=== PATIENT | male | born 1935 | race Caucasian/White ===

== ENCOUNTER 2016-08-06 10:10 | Inpatient (IN) ==
--- NOTE | 2016-08-06 11:01 | Diag Imaging Result Document ---
PROCEDURE NAME: HEAD W/O CONTRAST - 08/06/[address], 08/06/2016: A CT dose reduction protocol was used. COMPARISON: 08/05/2016. FINDINGS: Stable patchy periventricular white matter hypodensities most compatible with chronic microvascular disease. There is no acute disease or change from prior. IMPRESSION: No acute disease or change from prior. Consider a brain MRI. [facility]
--- NOTE | 2016-08-06 11:29 | Diag Imaging Result Document ---
PROCEDURE NAME: CHEST-1 VIEW - 08/06/2016 AP CHEST: FINDINGS: There is reticular nodular opacity throughout both lungs which was also the case of 07/31/2016. The lung opacities are slightly coarser than they were on 04/30/2015. IMPRESSION: Pulmonary fibrosis which may be slightly worse than on 04/30/2015 and 07/23/2015.
[2016-08-06 12:00] LABS: MANUAL DIFF NEEDED? NO
[2016-08-06 12:06] LABS: BASO% 0.3 % (0.0-0.8); EOS% 1.6 % (0.0-10.0); HEMOGLOBIN 11.5 g/dL (14.0-18.0); LYMPH# 0.73 X1000 (1.2-3.4); LYMPH% 11.4 % (20.5-51.1); MCH 28.9 PG (27-31); MCHC 32.9 g/dL (33-37); MCV 87.9 FL (81-99); MONO# 0.68 X1000 (0.11-0.59); MONO% 10.6 % (1.7-9.3); MPV 8.8 FL (7.4-10.4); NEUT% 76.1 % (42.2-75.2); PLT 221 X1000 (130-400); RBC 3.98 XMIL (4.7-6.1)
[2016-08-06 12:25] LABS: ALBUMIN 3.5 g/dL (3.5-5.0); CALCIUM 8.6 mg/dL (8.8-10.2); POTASSIUM 3.6 mmol/L (3.5-5.1); TOTAL BILIRUBIN 0.68 mg/dL (0.20-1.00); TOTAL PROTEIN 7.3 g/dL (6.3-8.3)
[2016-08-06 12:45] LABS: FREE T4 1.28 ng/dL (0.93-1.70)
[2016-08-06 12:53] LABS: URINE CULTURE NEEDED? NO; URINE MICRO REVIEW NEEDED? NO; URINE SOURCE CLEAN CATCH
[2016-08-06 12:56] LABS: BILIRUBIN URINE NEGATIVE (NEGATIVE); BLOOD URINE NEGATIVE (NEGATIVE); COLOR YELLOW; GLUCOSE URINE NEGATIVE (NEGATIVE); LEUKOCYTES URINE NEGATIVE (NEGATIVE); NITRITE URINE NEGATIVE (NEGATIVE); PH URINE 6.5; PROTEIN URINE NEGATIVE (NEGATIVE); SP GRAVITY URINE 1.007; TURBIDITY URINE CLEAR (CLEAR); UROBILINOGEN URINE NORMAL (NORMAL)
[2016-08-06 12:57] LABS: UR EPITHELIAL CELLS <10 /HPF (<10); URINE BACTERIA NEGATIVE /HPF; URINE RBC <10 /HPF (<10); URINE WBC <10 /HPF (<10)
--- NOTE | 2016-08-06 13:16 | EKG Report ---
Test Performed on : 08/06/2016 10:53:40 AM Test Reason : stroke Blood Pressure : / mmHG Vent. Rate : 088 BPM Atrial Rate : 100 BPM P-R Int : 000 ms QRS Dur : 158 ms QT Int : 454 ms P-R-T Axes : 000 117 -38 degrees QTc Int : 549 ms Atrial fibrillation. with premature ventricular or aberrantly conducted complexes. Right bundle branch block T wave abnormality, consider inferior ischemia Abnormal ECG When compared with ECG of 05-AUG-2016 07:42, (Unconfirmed) T wave inversion more evident in Anterior leads Unconfirmed Result
[2016-08-06] MEDS ORDERED: ZOFRAN IV PRN (14:46)
[2016-08-06] MEDS ORDERED: LASIX PO SCH (14:46)
[2016-08-06] MEDS ORDERED: CARDIZEM PO SCH (14:46)
[2016-08-06] MEDS ORDERED: DUONEB (A & A) INH PRN (14:46)
--- NOTE | 2016-08-06 17:57 | HISTORY AND PHYSICAL ---
Mr. Brown presented to the emergency room earlier today for 3 days now in a row. Two weeks ago they stopped his Klonopin because he seemed to be weak and puny and he has had episodes of the main thing has been confusion and delirium and agitation at times with some paranoid delusions. At present he is alert and oriented. But this morning she said it was difficult for him to sit up. It seemed like he was weaker, difficult for him to stand up. They have not noticed any slurred speech. She denies any change in vision. Denies any chest pain or palpitations. Denies any fever or chills. PAST MEDICAL HISTORY: 1. Congestive heart failure. Echocardiogram done on 10/19/2014 revealed ejection fraction of 40- 50%, moderately enlarged bilateral aorta, right ventricular depression. There was 1+ mitral regurgitation. Probably severe tricuspid regurgitation. Pulmonary artery hypertension with pulmonary artery pressures 70-80 mmHg. 2. Ischemic cardiomyopathy. 3. Coronary artery disease. 4. Hypertension. 5. Bipolar disease. 6. Chronic kidney disease with baseline creatinine 1.8. 7. Hyperlipidemia. 8. Chronic atrial fib status post MAZE procedure in 2008. 9. Status post pacemaker ICD placement. PAST SURGICAL HISTORY: 1. Pacemaker placement. 2. MAZE procedure. 3. Coronary artery disease. MEDICATIONS: At home: 1. Lipitor 5 mg a day. 2. Amiodarone 200 mg a day. 3. Cardizem 30 mg q.6 hours. 4. Furosemide 60 mg q.12 hours. 5. Isosorbide dinitrate 20 mg t.i.d. 6. Lamictal 10 mg b.i.d. 7. Zyprexa 10 mg at bedtime. 8. Oxycodone 20 mg Q.6 hours. I think they are changing to OxyContin. 9. Protonix 40 mg a day. 10. MiraLAX 17 g daily. 11. Spironolactone 25 mg a day. FAMILY HISTORY: Noncontributory. SOCIAL HISTORY: Patient quit smoking a long time ago. No alcohol or tobacco. REVIEW OF SYSTEMS: Unable to elicit from the patient. The reports no weight gain or change. No fever or chills. HEENT system: Confusion and delirium. Respiratory: No increased work of breathing or dyspnea. Cardiovascular: No chest pain or tachy palpitation. GI: Unremarkable. : Unremarkable. Musculoskeletal/Neurologic: No significant complaints. Endocrinologic/Hematologic: No significant history. PHYSICAL EXAMINATION: VITAL SIGNS: Temperature 98.4 degrees, pulse 88, respirations 15, blood pressure 120/68. HEENT: Pupils were equal, round. CVP less than 6 cm. LUNGS: Clear in all lung pham. CARDIOVASCULAR: Regular rhythm and rate without murmur or S3. ABDOMEN: Soft. SKIN: Warm and dry. Weight 154 pounds. White blood cell count 6400, hematocrit 35, platelet count 221,000. Sodium 134, potassium 3.6, chloride 92, BUN 33, creatinine 1.7. Blood sugar 91. Calcium 8.6. Liver functions unremarkable. Alkaline phos 159. Albumin 3.5. B12 613. TSH is 18.6. T4 1.28. Recently had gone up on his Synthroid. Urinalysis unremarkable. Chest x-ray, pulmonary fibrosis. CT of his head without contrast, no acute disease. May end up doing a brain MRI. Current list of medications. He is on Lipitor 5 mg a day. Amiodarone 200 mg a day. We will put him back on his Klonopin 0.5 mg b.i.d. Cardizem 30 mg p.o. q.6 hours. Docusate sodium is 100 mg at bedtime. Proscar 5 mg a day. Furosemide 80 mg daily. Ipratropium albuterol 0.5-32.5 treatments as needed. Iron carbonyl 1 a day. Isosorbide dinitrate 20 mg t.i.d. Lamictal 100 mg b.i.d. Synthroid recently increased to 75 mcg a day. Lopressor 25 mg a day. Zyprexa 10 mg at bedtime. Oxycodone 15 mg b.i.d. Protonix 40 mg daily. MiraLAX 17 g daily. Spironolactone 25 mg daily. Flomax 0.4 mg daily. EXAM: Temp 98.4 degrees, pulse 88, respirations 15, blood pressure 120/68.HEENT: Pupils are equal, round. Lungs: Are clear in all lung pham. Cardiovascular: Regular rhythm and rate without murmur or S3. Abdomen: Soft. Skin: Is warm and dry. Weight 154 pounds, height 5 feet 7 inches. CVP less than 6 cm. White blood cell count 6400, hematocrit 35, platelet count 221,000. Sodium 134, potassium 3.6, chloride 92, bicarb 26, BUN 33, creatinine 1.7. Liver functions: AST was 20, ALT was 13, alkaline phos 159. TSH 18.06. T4 1.28. ASSESSMENT AND PLAN: 1. Altered mental status, metabolic encephalopathy. This may be due to medication changes including possibility of withdrawal. I am going to put him back on his Klonopin. I am going to continue his other medications. He will take Zyprexa 10 mg a day, Lamictal 100 mg b.i.d., clonazepam backed down to 0.5 mg b.i.d. 2. Some underlying dementia. Aware. 3. History of congestive heart failure, pulmonary hypertension. Appears to be well compensated at present time. 4. Ischemic cardiomyopathy. 5. Coronary artery disease. 6. Hypertension. 7. Bipolar disease. 8. Chronic kidney disease probably stage 3. His creatinine is stable at 1.8. 9. Hyperlipidemia. 10. Chronic atrial fib, status post MAZE procedure. He is status post pacemaker, ICD placement. Rate appears well controlled. He is on amiodarone. His EKG today actually shows paced rhythm with a right bundle-branch pattern. Rate is 88. cc: Walter Contreras MD
[2016-08-06] MEDS ORDERED: NS 1,000 ML IV SCH (19:00)
[2016-08-06] MEDS: ISORDIL PO SCH (20:11)
[2016-08-06] MEDS: OXY IR PO SCH (20:13)
[2016-08-06] MEDS: ZYPREXA PO SCH (20:14)
[2016-08-06] MEDS: COLACE PO SCH (20:14)
[2016-08-06] MEDS: FLOMAX PO SCH (20:14)
[2016-08-06] MEDS: LAMICTAL PO SCH (20:14)
[2016-08-06] MEDS: KLONOPIN PO PRN (20:25)
[2016-08-07] MEDS: NS 1,000 ML IV SCH ×2 (04:19→09:21)
[2016-08-07 06:33] LABS: MANUAL DIFF NEEDED? NO
[2016-08-07 06:40] LABS: BASO% 0.2 % (0.0-0.8); EOS# 0.14 X1000 (0.0-0.7); EOS% 2.3 % (0.0-10.0); HEMATOCRIT 36.1 % (42.0-52.0); HEMOGLOBIN 11.3 g/dL (14.0-18.0); LYMPH# 0.53 X1000 (1.2-3.4); LYMPH% 8.7 % (20.5-51.1); MCH 28.3 PG (27-31); MCHC 31.3 g/dL (33-37); MCV 90.5 FL (81-99); MONO# 0.61 X1000 (0.11-0.59); MPV 8.2 FL (7.4-10.4); NEUT% 78.8 % (42.2-75.2); PLT 185 X1000 (130-400); RBC 3.99 XMIL (4.7-6.1)
[2016-08-07 06:53] LABS: CALCIUM 8.2 mg/dL (8.8-10.2); POTASSIUM 3.8 mmol/L (3.5-5.1); TOTAL BILIRUBIN 0.59 mg/dL (0.20-1.00); TOTAL PROTEIN 6.7 g/dL (6.3-8.3)
--- NOTE | 2016-08-07 07:14 | EKG Report ---
Test Performed on : 08/07/2016 06:37:50 AM Test Reason : chest pain Blood Pressure : / mmHG Vent. Rate : 087 BPM Atrial Rate : 096 BPM P-R Int : 000 ms QRS Dur : 176 ms QT Int : 434 ms P-R-T Axes : 000 112 -53 degrees QTc Int : 522 ms Atrial fibrillation. Right bundle branch block T wave abnormality, consider inferior ischemia Abnormal ECG When compared with ECG of 06-AUG-2016 10:53, No significant change was found Confirmed by Ulises ROB, Triston Chaudhry ([id number]) on 08/08/2016 10:00:24 AM
[2016-08-07] MEDS ORDERED: ALDACTONE PO SCH (09:00)
[2016-08-07] MEDS: LAMICTAL PO SCH ×2 (09:20→21:58)
[2016-08-07] MEDS: OXY IR PO SCH ×3 (09:21→22:06)
[2016-08-07] MEDS: FLOMAX PO SCH ×2 (09:21→21:58)
[2016-08-07] MEDS: ISORDIL PO SCH ×4 (09:21→22:01)
[2016-08-07] MEDS: SYNTHROID PO SCH (09:21)
[2016-08-07] MEDS: PROTONIX PO SCH (09:21)
[2016-08-07] MEDS ORDERED: LOPRESSOR PO SCH (15:00)
[2016-08-07] MEDS: ICAR-C PLUS PO SCH (15:23)
[2016-08-07] MEDS: CORDARONE PO SCH (15:23)
[2016-08-07] MEDS: MIRALAX PO SCH (15:24)
[2016-08-07] MEDS: LIPITOR PO SCH (15:24)
[2016-08-07] MEDS: PROSCAR PO SCH (15:24)
--- NOTE | 2016-08-07 16:17 | PROGRESS NOTE ---
DATE: 08/07/2016 SUBJECTIVE: Mr. Brown has been pretty sleepy but he is less confused. His was there. He has not slept very well for the last 3-4 days. He is back on his Klonopin. Discussed with his daughter, Dr. Garcia, who is a psychiatrist, and she feels as well that he is probably just having withdrawal from his Klonopin. In the long half life of the Klonopin, usually it is 72 hours or so before you start to see that, so that would fit. OBJECTIVE: Temp is 97.7. Pulse 70. Respirations 20. Blood pressure 114/59. Pupils are equal and round. CVP less than 6 cm. Lungs are clear in all lung pham. Cardiovascular exam is regular rhythm and rate without murmur or S3. Abdomen is soft. Skin is warm and dry. Urine output good. LABORATORY: White count 6112, hematocrit 36, platelet count 185,000. Chemistry: Sodium 138, potassium 3.8, chloride 99, bicarb 29, BUN 36, creatinine 1.6, blood sugar 106, 91, and 84. EKG from this morning: Atrial fibrillation, right bundle branch block, appears to be underlying atrial fibrillation, he does have a pacemaker, this appears to be unpaced rhythm. ASSESSMENT AND PLAN: 1. Confusion, delirium, worse than usual. We had recently stopped his Klonopin and they had also decreased some of his pain medicines. He seems to be better, although there is still some confusion. He has been very lethargic and sleepy but appears comfortable. He is requesting food, so we will see how his p.o. intake does. We have him back on his Klonopin 0.5 mg b.i.d. 2. Underlying dementia. 3. Congestive heart failure, pulmonary hypertension, probably severe tricuspid regurgitation, ischemic cardiomyopathy, appears well compensated. 4. Coronary artery disease. 5. Hypertension. 6. Bipolar illness. 7. Chronic kidney disease stage III. 8. Chronic atrial fibrillation. Review of his orders, I do not see any change. Lasix 80 mg p.o. Wednesday and , Flomax 0.4 mg b.i.d., Aldactone 25 mg Wednesday, Wednesday, Wednesday, MiraLAX 17 grams q. day, Protonix 40 mg a day, OxyIR 15 mg b.i.d., Zyprexa 10 mg q.h.s., he is receiving normal saline right now at 42 mL an hour, Lopressor 25 mg q. day, Synthroid 75 mg a day, Lamictal 100 mg b.i.d., isosorbide dinitrate 20 mg p.o. t.i.d., iron carbonyl 1 a day, fluticasone 1 puff inhaler q.day, Proscar 5 mg a day, docusate 100 mg q.h.s., Klonopin 0.5 mg b.i.d., Lipitor 5 mg a day, amiodarone 200 mg a day. cc: Walter Contreras MD
[2016-08-07] MEDS: ZYPREXA PO SCH (21:58)
[2016-08-07] MEDS: COLACE PO SCH (21:58)
[2016-08-08] MEDS: NS 1,000 ML IV SCH ×2 (03:59→09:15)
[2016-08-08] MEDS: KLONOPIN PO PRN ×2 (05:19→21:30)
[2016-08-08] MEDS: TYLENOL PO PRN ×2 (05:19→16:14)
[2016-08-08] MEDS: BREO ELLIPTA 100/25 MCG INH INH SCH (08:15)
[2016-08-08] MEDS: OXY IR PO SCH ×2 (09:12→21:30)
[2016-08-08] MEDS: LAMICTAL PO SCH ×2 (09:13→21:29)
[2016-08-08] MEDS: SYNTHROID PO SCH (09:13)
[2016-08-08] MEDS: ICAR-C PLUS PO SCH (09:13)
[2016-08-08] MEDS: FLOMAX PO SCH ×2 (09:13→21:29)
[2016-08-08] MEDS: PROSCAR PO SCH (09:13)
[2016-08-08] MEDS: ISORDIL PO SCH ×3 (09:13→21:33)
[2016-08-08] MEDS: LOPRESSOR PO SCH ×2 (09:13→09:17)
[2016-08-08] MEDS: MIRALAX PO SCH (09:14)
[2016-08-08] MEDS: CORDARONE PO SCH (09:14)
[2016-08-08] MEDS: PROTONIX PO SCH (09:14)
[2016-08-08] MEDS: LIPITOR PO SCH (09:14)
--- NOTE | 2016-08-08 14:36 | PROGRESS NOTE ---
DATE: 08/08/2016 SUBJECTIVE: He feels better, was awake. He said he wants to go home. He is oriented to person, place, breathing comfortably. OBJECTIVE: Vital signs: Temperature 98.1 degrees, pulse 69, respirations 18, blood pressure 99/52. HEENT: Pupils are equal. CVP less than 6 cm. Lungs: Clear in all lung pham. Cardiovascular: Regular rhythm and rate without murmur or S3. Abdomen: Soft. Skin: Warm and dry. Good urine output. LAB: White count 6120, hematocrit 36, platelet count 187,000. Sodium 138, potassium 3.8, chloride 99, BUN 36, creatinine 1.6, blood sugar 106, 91, 84, 137, 107, albumin 3.0. ASSESSMENT AND PLAN: 1. Confusion and delirium, underlying dementia. We suspected it is multifactorial but I suspect the main component was withdrawal from Klonopin doing better back on the Klonopin. 2. Congestive heart failure. Appears to be well compensated, breathing comfortably. 3. History of ischemic cardiomyopathy, severe tricuspid regurgitation and pulmonary hypertension but does have systolic dysfunction as well. 4. Coronary artery disease. 5. Hypertension. 6. Bipolar illness. 7. History of chronic kidney disease stage 3. Will recheck some more labs in the morning. Make sure we check thyroid as well. We actually did check T4, TSH and they are normal. August 06 his TSH was 18 in the emergency room so I had gone up on the Synthroid so review his orders, I do not see any change at this point. cc: Walter Contreras MD
[2016-08-08] MEDS: COLACE PO SCH (21:29)
[2016-08-08] MEDS: ZYPREXA PO SCH (21:29)
[2016-08-09] MEDS: NS 1,000 ML IV SCH (04:08)
[2016-08-09 06:43] LABS: CALCIUM 7.8 mg/dL (8.8-10.2); POTASSIUM 4.2 mmol/L (3.5-5.1)
[2016-08-09 07:36] VITALS: BP 129/67
[2016-08-09] MEDS: BREO ELLIPTA 100/25 MCG INH INH SCH (08:04)
[2016-08-09] MEDS: FLOMAX PO SCH (11:31)
[2016-08-09] MEDS: MIRALAX PO SCH (11:31)
[2016-08-09] MEDS: ICAR-C PLUS PO SCH (11:31)
[2016-08-09] MEDS: LIPITOR PO SCH (11:31)
[2016-08-09] MEDS: PROTONIX PO SCH (11:32)
[2016-08-09] MEDS: PROSCAR PO SCH (11:32)
[2016-08-09] MEDS: CORDARONE PO SCH (11:32)
[2016-08-09] MEDS: ISORDIL PO SCH (11:32)
[2016-08-09] MEDS: OXY IR PO SCH (11:32)
[2016-08-09] MEDS: SYNTHROID PO SCH (11:32)
[2016-08-09] MEDS: LAMICTAL PO SCH (11:33)
[2016-08-09] MEDS: LOPRESSOR PO SCH (11:33)
--- NOTE | 2016-08-09 13:42 | DISCHARGE SUMMARY ---
ADMISSION DATE: 08/06/2016 DISCHARGE DATE: 08/09/2016 HOSPITAL COURSE: He had really week's worth of confusion. We had recently decreased his Klonopin but his delusions and confusions were really more prominent and had brought him to the emergency room 3 days in a row. His labs and CT scans were unremarkable so felt like he had metabolic encephalopathy and adjusted his medications. He had no further trouble confusion, felt good, put him back on his Klonopin. We have been adjusting his pain medicine down. We did hold his Lopressor little bit because of his blood pressure and in fact I will reduce his Lopressor a little bit. DISCHARGE MEDICATIONS: His list of medications when he goes home he can take his DuoNeb, he is on Cordarone 200 mg a day, Lipitor 5 mg a day, Klonopin 0.5 mg b.i.d., Colace 100 mg at bedtime, Proscar 5 mg a day, Breo Ellipta 100/25 one puff daily, Lasix 80 mg takes by mouth Wednesday, , iron, B12, vitamin C, folic acid or Icar Plus 1 a day, Isordil 20 mg t.i.d., Lamictal 100 mg b.i.d., Synthroid mg daily, Lopressor we are down to 12.5 p.o. daily so will continue that, Zyprexa 10 mg at bedtime, he has OxyIR 15 mg p.o. b.i.d., Protonix 40 mg a day, MiraLAX 17 g daily, Aldactone 25 mg a day, Flomax 0.4 mg b.i.d. DISPOSITION: See him back in my office in a couple weeks. PAST MEDICAL HISTORY: To review other medical problems for him he has. 1. History of congestive heart failure. Echocardiogram done on 10/19/2014 revealed ejection fraction of 40-50%, moderately large bilateral atrium, right ventricular depression which is mild, there was 1+ mitral regurgitation, probably severe tricuspid regurgitation, pulmonary arterial hypertension appreciated. 2. Ischemic cardiomyopathy. 3. Coronary artery disease. 4. Hypertension. 5. Bipolar disease. 6. Chronic kidney disease with baseline creatinine 1.8. 7. Hyperlipidemia. 8. Chronic atrial fibrillation status post Maze procedure in 2008. 9. Status post pacemaker implantable cardioverter defibrillator placement. PAST SURGICAL HISTORY: 1. Pacemaker placement. 2. Maze procedure. 3. Coronary artery disease. cc: Walter Contreras MD
== END 2016-08-09 14:51 | disposition home or self-care (01) ==
LOC: SUPCPDRO → ED 10:10 → EDIPHOLD 14:41 → 3N 15:41
PROVIDERS: ADMIT Emergency Medicine; ATTEND Emergency Medicine

== ENCOUNTER 2016-08-19 23:49 | Inpatient (IN) ==
[2016-08-20] MEDS ORDERED: LASIX IV ONE (00:29)
[2016-08-20] MEDS ORDERED: DUONEB (A & A) INH ONE ×2 (00:29→01:44)
--- NOTE | 2016-08-20 00:40 | PROVIDER DOCUMENTATION ---
This chart was entered by Bere Dong Scribe, acting as scribe for Osiris Moise PA. HPI-General Adult - General Chief Complaint: Headache Stated Complaint: SOB/HEADACHE Time Seen by Provider: 08/20/16 00:06 Source: patient, family Allergies/Adverse Reactions: Patient Allergies Allergy/AdvReac Type Severity Reaction Status Date / Time divalproex sodium AdvReac Severe Renal Verified 08/20/16 00:45 [From [facility]] failure Home Medications: Home Medication List Medication Instructions Recorded Confirmed Last Taken Type ATORVAstatin [Lipitor] 5 mg PO DAILY 03/20/12 08/20/16 08/19/16 History Lamotrigine [Lamictal Odt] 100 mg PO BID 03/20/12 08/20/16 08/19/16 History Olanzapine [Zyprexa] 10 mg PO QHS 03/20/12 08/20/16 08/19/16 History Polyethylene Glycol 3350 [Miralax] 17 gm PO DAILY 03/20/12 08/20/16 08/19/16 History Amiodarone HCl 200 mg PO DAILY 05/28/14 08/20/16 08/19/16 History Pantoprazole [Protonix] 40 mg PO DAILY 05/28/14 08/20/16 08/19/16 History Spironolactone 25 mg PO DIRECTED 01/15/15 08/20/16 08/19/16 History Isosorbide Dinitrate [Isordil] 20 mg PO TID #90 tablet 02/02/15 08/20/16 Rx Finasteride [Proscar] 5 mg PO DAILY #30 tablet 03/18/15 08/20/16 08/19/16 Rx Tamsulosin [Flomax] 0.4 mg PO BID #30 capsule 03/18/15 08/20/16 08/19/16 Rx Docusate Sodium [Colace] 100 mg PO QHS 07/31/16 08/20/16 08/19/16 History Fluticasone/Vilanterol [Breo 1 each IH DAILY 07/31/16 08/20/16 08/19/16 History Ellipta 100-25 Mcg INH] Furosemide [Lasix] 80 mg PO DIRECTED 07/31/16 08/20/16 08/19/16 History Ipratropium/Albuterol Sulfate 3 ml IH Q4H PRN 07/31/16 08/20/16 08/19/16 History [Iprat-Albut 0.5-3(2.5) mg/3 ml] Iron,Carbonyl/Vit C/Vit B12/FA 1 each PO DAILY 07/31/16 08/20/16 08/19/16 History [Iron 100 Plus Tablet] Metoprolol [Lopressor] 12.5 mg PO DAILY 07/31/16 08/20/16 08/19/16 History Levothyroxine [Synthroid] 75 microgm PO DAILY #30 tablet 08/05/16 08/20/1608/19 Rx Oxycodone HCl [Dazidox] 10 mg PO TID 08/20/16 08/20/16 Unknown History - History of Present Illness -Gen Adult Nature of Presenting Problems: 81 year old M with a history of CHF (Last EF of 40-50% 09/2014), CAD, pulmonary fibrosis, COPD and hx of CVA with right sided residual weakness. He presents to the ED with his as majority historian a cc of a headache and back pain. states that pt has been falling more often even when walking with a walker. She also states that pt has been short of breath. PT was recently discharged 2 weeks ago from the hospital with AMS secondary to Klonipin withdrawal. Location of Pain/Injury: reports: head Quality of Pain: reports: aching Severity: reports: mild Timing: reports: still present Context/Activities at Onset: reports: none Associated Symptoms: reports: headaches, shortness of breath Similar Symptoms Previously?: Yes Recently seen or treated by another doctor?: No Review of Systems - Adult - REVIEW OF SYSTEMS - ADULT Constitutional: denies: chills, fever Eyes: reports: no symptoms reported Ears, Nose, Mouth & Throat: reports: no symptoms reported Cardiovascular: reports: no symptoms reported Respiratory: reports: shortness of breath. denies: cough Gastrointestinal: denies: abdominal pain, nausea, vomiting Genitourinary: reports: no symptoms reported Musculoskeletal: reports: no symptoms reported Integumentary: reports: no symptoms reported Neurological: reports: headache/migraines. denies: dizziness/vertigo Psychiatric: reports: no symptoms reported Endocrine: reports: no symptoms reported Hematologic/Lymphatic: reports: no symptoms reported Allergic/Immunologic: reports: no symptoms reported All Other Systems: Reviewed and Negative Past History - Adult - PAST MEDICAL HISTORY-ADULT Review of Records: reports: Nursing Assessment Review, Medications Reviewed Major Childhood Illnesses: reports: denies history Cardiovascular: reports: CAD, CHF, HTN Respiratory: reports: COPD Genitourinary: reports: kidney disease Neurological: reports: CVA, TIA Psychiatric: reports: bipolar - PRIOR SURGERIES/PROCEDURES Surgical/Procedure History: reports: CABG, other (ICD, hemorrhoid) - PRIOR HOSPITALIZATIONS Prior Hospitalizations: reports: for similar symptoms - IMMUNIZATION STATUS Childhood Immunizations: See Nurse Assessment Flu Vaccine: See Nurse Assessment - FAMILY HISTORY Family History: reviewed, not pertinent Physical Exam-General - PHYSICAL EXAM-ADULT Initial Vital Signs Reviewed: Yes - CONSTITUTIONAL General Appearance: alert - EYES Eyes: PERRL/EOMI, pink conjunctivae, other (extropion on the right with some discharge around the margins.) - HEAD, EARS, NOSE, MOUTH & THROAT HENMT: normocephalic/atraumatic, moist mucous membranes, normal ENT inspection - RESPIRATORY Respiratory: crackles, wheezing (diffuse), other (tachypnea) - CARDIOVASCULAR Cardiovascular: regular rate, rhythm, other (ICD in the left anterior chest) - GASTROINTESTINAL (ABDOMEN) Abdominal Exam: soft - MUSCULOSKELETAL Extremity: pedal edema (3+ bilateral), other (weakness of the right side generalized) Peripheral Pulses: radial (R): 2+, radial (L): 2+, dorsalis-pedis (R): 2+, dorsalis-pedis (L): 2+ - SKIN Integumentary: abrasion(s) (throasic spin x3), other (fragile skin) - NEUROLOGIC Neurologic: facial droop (right lip with drool and right eye), motor weakness ( right arm) - PSYCHIATRIC Psych/Mental Status: oriented x 3 Progress - PLAN OF CARE/RESULTS Progress/Plan/Lab Results: Vital Signs - 8 hr 08/19/16 23:51 Temperature 97.1 F L Pulse Rate 88 Respiratory Rate 28 H Blood Pressure 159/77 O2 Sat by Pulse Oximetry 95 Orders Category Date Time Status EKG [EKG] Stat Ther 08/19/16 23:54 Ordered Result Diagrams: 08/20/16 00:15 08/20/16 00:15 - EKG 1 Time of EKG reading by physician:: 23:55 EKG Read and Signed by:: Edd Correa EKG Interpretation (*Must complete 3 of following elements*): Abnormal Rate: 97 Rhythm: atrial fibrillation QRS: RBB ST Wave: non-specific ST changes (T-wave abnormality) - XRAY 1 XRAY: Bilateral XRAY Study: Chest Impression: Abnormal (increased pulmonary vasculature congestion compared to 03/28. No obvious effusions or pneumonia, reviewed by Dr. Correa) - CONSULTS/PCP/HOSPITALIST Notification #1 *Consult/PCP/Hospitalist*: Dr. Bird, hospitalist Time Discussed: 02:14 (on behalf of Dr. Contreras) Reason/Comments: CHF exacerbation Consult Disposition: Admit Departure - Departure Time of Disposition Decision: 02:05 DIAGNOSIS: Weakness, Elevated TSH CHF (congestive heart failure) Qualifiers: Congestive heart failure type: systolic Congestive heart failure chronicity: acute Qualified Code(s): I50.21 - Acute systolic (congestive) heart failure Disposition: ADMITTED INPATIENT 09 Certified Medical Emergency: Emergent Condition: Stable - Critical Care Note This patient required my direct & personal management of CC.: No Attestation - Physician/ TEJAL Attestation Patient care was provided by Advanced Practice Provider:: Yes Advanced Practice Provider:: Osiris Moise Advanced Practice Provider documentation review:: The Mid-level provider documentation, treatment plan and medical decision making was reviewed by the physician who agrees with all treatment and medical decision making by the MLP. This chart was documented by the indicated scribe, (Bere Dong Scribe) and accurately reflects the services I performed and decisions made by Jose Maria hernandez Kayla C., PA, as attested by the provider's signature.
[2016-08-20 00:44] LABS: ALLEN TEST YES; BE 2.3 mmoll (-3.0-3.0); BLOOD TYPE ARTERIAL; DRAW SITE L RADIAL; METHB 1.7 % (0.0-1.5); MODALITY ROOM AIR; O2(CT) 14.5 mL/dL (15.0-23.0); PCO2(98.6) 43 mmHg (35-45); PO2(98.6) 101 mmHg (60-100); SAMPLE BLOOD; SAO2 98.3 % (95.0-100.0); THB 10.7 g/dL (11.5-17.4); pH(98.6) 7.41 (7.35-7.45)
[2016-08-20 00:58] LABS: MANUAL DIFF NEEDED? NO
[2016-08-20 01:01] LABS: BASO% 0.2 % (0.0-0.8); EOS# 0.12 X1000 (0.0-0.7); EOS% 1.9 % (0.0-10.0); HEMATOCRIT 34.2 % (42.0-52.0); LYMPH% 8.1 % (20.5-51.1); MCH 28.4 PG (27-31); MCHC 32.2 g/dL (33-37); MCV 88.4 FL (81-99); MONO# 0.47 X1000 (0.11-0.59); MONO% 7.6 % (1.7-9.3); MPV 9.4 FL (7.4-10.4); NEUT% 82.2 % (42.2-75.2); PLT 168 X1000 (130-400); RBC 3.87 XMIL (4.7-6.1)
[2016-08-20 01:36] LABS: URINE CULTURE NEEDED? NO; URINE MICRO REVIEW NEEDED? NO; URINE SOURCE CLEAN CATCH
[2016-08-20 01:39] LABS: ALBUMIN 3.5 g/dL (3.5-5.0); CALCIUM 8.8 mg/dL (8.8-10.2); MAGNESIUM 1.9 mg/dL (1.5-2.7); POTASSIUM 4.3 mmol/L (3.5-5.1); TOTAL BILIRUBIN 0.57 mg/dL (0.20-1.00); TOTAL PROTEIN 7.1 g/dL (6.3-8.3)
[2016-08-20 01:39] LABS: BILIRUBIN URINE NEGATIVE (NEGATIVE); BLOOD URINE NEGATIVE (NEGATIVE); COLOR YELLOW; GLUCOSE URINE NEGATIVE (NEGATIVE); LEUKOCYTES URINE NEGATIVE (NEGATIVE); NITRITE URINE NEGATIVE (NEGATIVE); PROTEIN URINE TRACE mg/dL (NEGATIVE); TURBIDITY URINE CLEAR (CLEAR); UR EPITHELIAL CELLS <10 /HPF (<10); URINE BACTERIA NEGATIVE /HPF; URINE RBC <10 /HPF (<10); URINE WBC <10 /HPF (<10); UROBILINOGEN URINE NORMAL (NORMAL)
[2016-08-20] MEDS ORDERED: PHENERGAN IV ONE (01:42)
[2016-08-20] MEDS ORDERED: COMPAZINE IV ONE (01:42)
[2016-08-20] MEDS ORDERED: SODIUM CHLORIDE 0.9% INJ ONE (01:42)
[2016-08-20 01:57] LABS: FREE T4 1.05 ng/dL (0.93-1.70)
[2016-08-20 04:55] LABS: INR 1.1; PROTIME 11.6 Seconds (9.2-11.7); PTT 27.5 Seconds (22.0-36.0)
[2016-08-20] MEDS ORDERED: ZOFRAN IV PRN (05:04)
[2016-08-20] MEDS ORDERED: MIRALAX PO PRN (05:04)
[2016-08-20] MEDS: OXY IR PO PRN ×2 (06:24→13:26)
[2016-08-20] MEDS: SYNTHROID PO SCH (06:27)
--- NOTE | 2016-08-20 06:28 | EKG Report ---
Test Performed on : 08/19/2016 11:55:47 PM Test Reason : sob/back pain Blood Pressure : / mmHG Vent. Rate : 097 BPM Atrial Rate : 107 BPM P-R Int : 000 ms QRS Dur : 176 ms QT Int : 424 ms P-R-T Axes : 000 121 -56 degrees QTc Int : 538 ms Undetermined rhythm Right bundle branch block T wave abnormality, consider inferior ischemia Abnormal ECG When compared with ECG of 07-AUG-2016 06:37, Current undetermined rhythm precludes rhythm comparison, needs review Unconfirmed Result
[2016-08-20] MEDS: LOVENOX SUBQ SCH (06:48)
--- NOTE | 2016-08-20 07:28 | HISTORY AND PHYSICAL ---
PRIMARY CARE PROVIDER: Walter Contreras MD MILITARY PAY CLERK: Camilo Cabral MD DATE AND TIME OF HISTORY AND PHYSICAL: On 08/20/2016 at 0300 hours. CHIEF COMPLAINT: Headache and shortness of breath. HISTORY OF PRESENT ILLNESS: Mr. Brown is an 81-year-old male who presented to the ER tonight, accompanied by his , complaining of worsening shortness of breath, as well as headache and back pain. The patient's reports that he has been falling more often when walking with his walker. He has also been complaining of shortness of breath and has some increased swelling in his lower extremities. The patient was recently discharged from the hospital approximately 2 weeks ago after being admitted with some altered mental status, possibly secondary to medication and Klonopin withdrawal. Upon arrival to the ER, the patient was noted to be short of breath with audible wheezing. His reports that over the past 1-1/2 weeks, he has become increasingly more short of breath. He has also had some increasing weakness and multiple falls. He has not been sleeping well. The patient does have a history of chronic headaches and does present to the ER with a headache that has been becoming worse over the past day or so. He has had increased use of his home nebulizer treatments and weight gain of 7 pounds in the last few days. ER staff reports upon arrival patient was alert and oriented x3 and was able answer questions appropriately. He was given 12.5 of Phenergan IV and 10 mg of Compazine IV for treatment of his headache. Unfortunately, this has caused the patient to be quite drowsy, confused and restlessness. The patient's confirms that he was alert and oriented and able to answer questions appropriately prior to administration of this medication. At this time we will admit the patient for further treatment of his congestive heart failure exacerbation. REVIEW OF SYSTEMS: A 12-point review of systems was conducted with the patient , and all were negative except for pertinent positives mentioned above in the HPI. PAST MEDICAL HISTORY: 1. Congestive heart failure with last echocardiogram performed in January 2015, which shows a normal left ventricular systolic function with an estimated EF of 60% to 65% . There was a moderately enlarged right ventricle with right global hypokinesis. Moderate pulmonary hypertension with moderate tricuspid regurgitation. Mild mitral regurgitation, and there is a mild degree of aortic regurgitation with a calcification of the aortic valve and trivial aortic stenosis. 2. Ischemic cardiomyopathy. 3. Coronary artery disease, status post CABG. 4. Hypertension. 5. Hyperlipidemia. 6. Chronic atrial fibrillation, status post maze procedure. 7. Status post AICD pacemaker placement. 8. Chronic kidney disease. 9. Bipolar disease. 10. Hypothyroidism. 11. 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 12. COPD, currently on home oxygen with nasal cannula at 3 liters. 13. History of skin cancer. PAST SURGICAL HISTORY: 1. Previous coronary bypass procedure x2, along with maze procedure. The patient has had implantation of an AICD pacemaker. 2. Eight skin cancer removal. 3. Hemorrhoid surgery. 4. Cataract surgery. SOCIAL HISTORY: The patient currently lives at home with his , who was present at bedside at the time of examination. He is a former smoker, though he quit smoking many years ago. He has no known history of alcohol or illicit drug use. FAMILY HISTORY: The patient's mother and father both had a history of lung cancer. His mother also had a history of heart disease. ALLERGIES: The patient reports allergies to Depakote. HOME MEDICATIONS: 1. Amiodarone 200 mg p.o. daily. 2. Atorvastatin 5 mg p.o. daily. 3. Colace 100 mg p.o. every night at bedtime. 4. Proscar 5 mg p.o. daily. 5. Breo Ellipta 100/25 mcg inhaler 1 each inhaled daily. 6. Lasix 80 mg as directed 2 tablets p.o. every a.m. on Mondays and . 7. DuoNeb nebulizer treatments 3 mL inhaled every 4 hours p.r.n. for shortness of breath. 8. Iron 100+ tablet 1 p.o. daily. 9. Isordil 20 mg p.o. t.i.d. 10. Lamictal ODT 100 mg p.o. b.i.d. 11. Synthroid 75 mcg p.o. daily. 12. Metoprolol 12.5 mg p.o. daily. 13. Olanzapine 10 mg p.o. every night at bedtime. 14. Oxycodone 10 mg p.o. t.i.d. 15. Protonix 40 mg p.o. daily. 16. MiraLAX 17 grams p.o. daily. 17. Spironolactone 25 mg p.o. as directed on Wednesday, Wednesday, and Wednesday. 18. Flomax 0.4 mg p.o. b.i.d. DIAGNOSTIC DATA AND LABORATORY RESULTS: White blood cell count 6.19, hemoglobin 11, hematocrit 34.2, platelet count is 168,000. PT 11.6, INR 1.1, PTT 27.5. Sodium 134, potassium 4.3, chloride 97, bicarbonate 26, BUN 24, creatinine 1.4 with an estimated GFR of 49, glucose 98, calcium 8.8, magnesium 1.9. Total bilirubin is 0.57, AST 21, ALT 17, alkaline phosphatase is 191. His proBNP is 15,982. TSH 23.99, free T4 is 1.05. Arterial blood gases were obtained on room air, and pH was 7.41, pCO2 of 43, PO2 of 101, HCO3 was 26.6 with a base excess of 2.3 and O2 saturation of 98.3. Urinalysis was obtained via clean catch and was positive for protein, though was negative for glucose, ketones, blood, nitrites, leukocytes, or bacteria. EKG showed atrial fibrillation with a right bundle-branch block, as well as a right axis deviation, at a rate of 97. The QTc was 538. Chest x-ray showed findings of increased pulmonary vascular congestion compared to previous in July 2016. No obvious effusions or pneumonia is noted, though we are awaiting for a radiology over-read. PENDING DIAGNOSTIC STUDIES: The pending diagnostic studies at this time are an echocardiogram, as well as a series of CK profile as well as troponins. PHYSICAL EXAMINATION: VITAL SIGNS: Temperature 98 degrees, heart rate 87, respirations 20, blood pressure 155/92, oxygen saturation 97% on nasal cannula at 3 liters. GENERAL: Mr. Brown is an elderly 81-year-old male who was resting on the ER stretcher. Due to just being given some medications for headache of Compazine and Phenergan , the patient was slightly drowsy, as well as slightly confused upon our examination. HEENT: Head is atraumatic, normocephalic. Pupils are equal, round, reactive to light and were 3 mm bilaterally and brisk. The patient does have some deformity noted to the upper and lower lid of his right eye, through the states this is secondary to some skin cancer that he has had removed, and he is currently seeing an cash reconciliation specialist for close evaluation of this. Oral mucosa is moist. Oropharynx is clear. NECK: Supple. Trachea midline. The patient does have a slight hepatojugular reflex noted upon examination. CARDIOVASCULAR: The patient has normal S1 and S2 with no murmurs, gallops, or rubs appreciated. Heart rhythm slightly irregular with a heart rates that is controlled in the 80s and 90s. The patient does have a pacemaker defibrillator to the left chest. PULMONARY: The patient has symmetrical chest expansion bilaterally. Lung sounds in bilateral full pham were coarse with wheezing noted. ABDOMEN: Soft, nontender, nondistended. Bowel sounds were present in all 4 quadrants. EXTREMITIES: The patient has no cyanosis noted, though does have some slight swelling noted in the bilateral lower extremities from approximately the mid calf and down. He has 1+ pitting edema from ankle area down. The patient is able to move all extremities well. Pulse, motor, and sensory are intact in all extremities. Pedal pulses were 3+ bilaterally. INTEGUMENTARY: The patient's skin is pink, warm, and dry. The patient does have a skin tear noted to his elbow with some dried blood noted. NEUROLOGICAL: The patient is easily arousable to verbal stimuli with his name. He was able to state his name and where he was, though would not state the month. At this time , the patient's neurological exam is limited due to administered medications previously mentioned. The patient has some right sided facial droop noted, as well as some right-sided weakness. Patient's states this is not a new onset and it is secondary to a previous stroke. ASSESSMENT AND PLAN: 1. Congestive heart failure exacerbation. We have placed an order for an echocardiogram and a consultation with cardiology, with Dr. Cabral. We have placed the patient on Coreg 6.25 mg by mouth daily and Aldactone 12.5 mg daily. We will give Lasix 40 mg intravenously every 12 hours, daily weights, and strict input and output. We will do series of cardiac enzymes and will monitor his cardiovascular status closely and await further recommendations from cardiology. 2. Hypertension. We will continue the patient's previously prescribed blood pressure medicines. 3. Chronic atrial fibrillation, status post maze procedure. He has an automatic implantable cardioverter-defibrillator pacemaker placed. At this time, his rate is controlled. We will continue his amiodarone and place him on telemetry, and we will continue to monitor. 4. Coronary artery disease, status post coronary bypass. We have placed the patient on a aspirin 81 mg by mouth daily. 5. Hyperlipidemia. We will continue the patient's Lipitor. 6. Chronic kidney disease. This appears to be stable at this time. We will just continue to follow. 7. Chronic obstructive pulmonary disease. We will continue the patient's home oxygen at [address] DuoNeb treatments every 4 to 6 hours as needed. 8. Previous cerebrovascular accident with residual right-sided weakness and facial droop. We are aware. 9. Hypothyroidism. The patient's thyroid stimulating hormone was elevated. We have slightly adjusted his Synthroid and increased the dosage to 88 mcg, and we will continue to follow. 10. Bipolar. We will continue the patient's Zyprexa and Lamictal and monitor his neurological status closely. The patient will be placed on the medical floor with telemetry. He will have vital signs every 4 hours. He will be on a heart healthy diet. We will do deep vein thrombosis prophylaxis with Lovenox 30 mg subcutaneously daily. We have also ordered an iron level and are awaiting these results. Further orders and recommendations pending hospital course, diagnostic studies and physician evaluation. Dictated by JACOB Lanza for Jessie Bird MD I seen and examined pt with FLEXIBLE BABYSITTER; discussed plan of care with her. Seen and examined pt with FLEXIBLE BABYSITTER. Discussed plan of care with FLEXIBLE BABYSITTER cc: MD Walter Forman MD MTDD
--- NOTE | 2016-08-20 07:58 | Diag Imaging Result Document ---
PROCEDURE NAME: CHEST-PORTABLE - 08/20/2016 PORTABLE CHEST X-RAY: COMPARISON: 08/06/2016. FINDINGS: Stable pacemaker and cardiomegaly. Grossly stable diffuse bilateral coarse peripheral interstitial opacities. No pneumothorax or large effusion. No new infiltrates. IMPRESSION: No change from prior.
[2016-08-20] MEDS: DUONEB (A & A) INH PRN ×4 (08:17→19:42)
[2016-08-20] MEDS: BREO ELLIPTA 100/25 MCG INH INH SCH (08:19)
--- NOTE | 2016-08-20 08:33 | PROGRESS NOTE ---
DATE: 08/20/2016 SUBJECTIVE: This is follow up. He is admitted early this morning. states he has been having more shortness of breath. He has been having more confusion, headache and shortness of breath, and it got where he was really struggling to move air. PAST MEDICAL HISTORY: Congestive heart failure. Last known ejection fraction measured was 40% to 50% in September 2014, coronary artery disease, hypertension, COPD, history of CVA with right-sided residual weakness. The patient brought in accompanied by his complaining of worsening shortness of breath, as well as headache and back pain. Patient's reports he has been falling more often, walking with his walker and has been complaining of shortness of breath. I had him in the hospital earlier for some confusion. We thought this was related to stopping his Klonopin. In the emergency room, he was short of breath. Audible wheezing. Reported that for the last 1 to 1-1/2 weeks he has become increasingly more short of breath. He has also had increasing weakness, multiple falls. States he has been sleeping well. Patient has a history of chronic headaches. He reports he still has a headache, still complains of shortness of breath. OBJECTIVE: Vital signs: On physical exam at the present time, temperature 98.2 degrees, pulse 82, respirations 20, blood pressure 116/90. HEENT: CVP appears about 10 cm water pressure from angle of Conner. Lungs: With rales at the bases, but appears to have good airflow no prolonged expiratory phase I can appreciate. Cardiovascular exam: Regular rhythm and rate without murmur or S3. Abdomen: Soft. Skin: Warm and dry. Good urine output. LAB: White count 6190, hematocrit 34, platelet count 168,000. Sodium 134, potassium 4.3, chloride 97, BUN 24, creatinine 1.4. ProBNP was 15,982. TSH is 23, T4 is 1.03. X-RAY: Chest x-ray shows cardiomegaly and median sternotomy wires appreciated. Cephalization of the pulmonary venous vasculature consistent with pulmonary venous hypertension. I do not do not see any evidence of pleural effusions. He does have a pacemaker. REVIEW OF HIS ORDERS: He is on spironolactone 12.5 mg daily. He is on isosorbide dinitrate 20 mg t.i.d. He is taking an iron supplement for chronic anemia microcytic. He is on Proscar 5 mg a day, docusate sodium 100 mg at bedtime, Coreg 6.25 mg daily, Lipitor 5 mg a day, aspirin 81 mg a day, amiodarone 200 mg a day. He is getting albuterol breathing treatments. He got 1 dose of Lasix down in the emergency room, IV's to keep vein open. ASSESSMENT AND PLAN: 1. Congestive heart failure. Dr. Cabral consulted to see if we can tune up his medicines, diurese him a little bit, and watch his afterload and preload. 2. Dementia, increased agitation and confusion, multifactorial, but obviously pulmonary venous hypertension playing a primary role. 3. Osteoarthritis. 4. History of cerebrovascular accident in the past. 5. He has a history of benign prostatic hypertrophy as well. Continue current medications. Note primary hypothyroidism. A TSH is his elevated and I do think we need to go up on his levothyroxine. So, probably will increase that. I think I have done that fairly recently within the last 3 weeks, so may need to give it more time. We will discuss that with Dr. Cabral given his underlying congestive heart failure. cc: Walter Contreras MD
[2016-08-20] MEDS: ICAR-C PLUS PO SCH (09:49)
[2016-08-20] MEDS: PROTONIX PO SCH (09:49)
[2016-08-20] MEDS: FLOMAX PO SCH ×2 (09:49→21:36)
[2016-08-20] MEDS: LIPITOR PO SCH (09:49)
[2016-08-20] MEDS: ISORDIL PO SCH ×3 (09:49→16:53)
[2016-08-20] MEDS: ASPIRIN PO SCH (09:50)
[2016-08-20] MEDS: COREG PO SCH ×3 (09:50→10:25)
[2016-08-20] MEDS: PROSCAR PO SCH (09:50)
[2016-08-20] MEDS: LAMICTAL PO SCH ×2 (09:50→21:36)
[2016-08-20] MEDS: ALDACTONE PO SCH (09:51)
[2016-08-20] MEDS: CORDARONE PO SCH (10:21)
--- NOTE | 2016-08-20 12:13 | CONSULTATION ---
DATE OF CONSULTATION: 08/20/2016 IMPRESSIONS: 1. Acute on chronic congestive heart failure, largely right-sided, with previous echocardiography suggesting enlarged right ventricle with right ventricular hypokinesis and moderate pulmonary hypertension, and preserved left ventricular ejection fraction. 2. Severe chronic obstructive pulmonary disease, requiring chronic home oxygen. 3. Atherosclerotic coronary artery disease with history of previous coronary artery bypass grafting. Left ventricular ejection fraction normal. 4. Chronic atrial fibrillation. Patient not felt to be a candidate for anticoagulation due to history of gastrointestinal blood loss. 5. Hypertension. 6. Hyperlipidemia. 7. Bipolar disease. 8. Previous cerebrovascular accident with residual right-sided weakness and right facial droop. RECOMMENDATIONS: 1. Diuresis, as you are doing. 2. Conservative overall care in light of patient's significant comorbidities. HISTORY: This 81-year-old white male with past history of chronic congestive heart failure largely due to cor pulmonale, previous coronary bypass grafting, severe COPD requiring chronic home oxygen, chronic atrial fibrillation, hypertension, hyperlipidemia, and previous cerebrovascular accident was admitted through the emergency room last night for further management of exacerbation of congestive heart failure. He has chronic dyspnea. Over the last 2-3 weeks, he has had progressive tendency for shortness of breath. There has been no angina. He equivocates as to whether there is any orthopnea. He is somewhat groggy and confused after antiemetics. His indicates that he does not limit his fluid intake very well. He is not felt to be a candidate for anticoagulation, as he has history of peptic ulcer disease and previous GI blood loss. PAST MEDICAL HISTORY: 1. Chronic congestive heart failure, largely cor pulmonale, with echocardiography in January 2015 reporting left ventricular ejection fraction of 60% to 65% with moderately enlarged right ventricle and right ventricular hypokinesis as well as moderate pulmonary hypertension and moderate tricuspid regurgitation. 2. Atherosclerotic coronary artery disease with history of previous coronary bypass grafting coupled with maze procedure. 3. Chronic atrial fibrillation. 4. Severe COPD. 5. Hypertension. 6. Hyperlipidemia. 7. Status post implantable defibrillator. 8. Chronic kidney disease. 9. Bipolar disease. 10. Hypothyroidism. 11. Previous cerebrovascular accident with right-sided weakness and right facial droop. 12. History of skin cancer. PAST SURGICAL HISTORY: Coronary bypass grafting with maze procedure, multiple skin cancer removals, hemorrhoid surgery, cataract surgery. ALLERGIES: He is allergic or intolerant to Depakote. MEDICATIONS PRIOR TO ADMISSION: As listed. SOCIAL HISTORY: He lives at home with his . He quit smoking perhaps 10 years ago, and previously smoked 1-1/2 packs of cigarettes per day for many years. He does not use alcohol. FAMILY HISTORY: Negative for premature coronary artery disease. REVIEW OF SYSTEMS: Pulmonary: Noteworthy for dyspnea, otherwise negative. Gastrointestinal: Negative. Constitutional: Negative. The remainder of the review of systems was negative/noncontributory with 14 total systems reviewed. PHYSICAL EXAMINATION: General: This is a chronically ill-appearing, elderly male in no distress on supplemental oxygen per nasal cannula. He is somewhat groggy after recent antiemetics. Vital Signs: As recorded and are stable. HEENT: Extraocular muscles appear intact. Mucous membranes are moist. Neck: Supple. Jugular distention appears to be present. Carotid bruits cannot be appreciated. Chest: Auscultation of the chest reveals bibasilar inspiratory crackles. Cardiac: An irregular rate and rhythm, without appreciable murmur or gallop. Abdomen: Soft and nontender. Neurologic: Reveals him to be somewhat groggy, but arousable. Speech is fluent. There is some right facial droop and some right-sided weakness. DIAGNOSTIC DATA: ECG demonstrates atrial fibrillation, right bundle branch block, and right axis deviation. cc: MD Walter Velez MD
[2016-08-20] MEDS: LASIX IV SCH (12:29)
--- NOTE | 2016-08-20 14:48 | ECHO REPORT ---
ORDER DATE: 08/20/2016 INDICATIONS: 1. Congestive heart failure. 2. Hypertension. 3. ICD implantation. FINDINGS: 1. Right atrium is mildly enlarged at 4.9 cm. Linear artifact consistent with device leads. This is noted the right heart chambers. 2. Moderate tricuspid regurgitation. RV systolic pressure is markedly elevated at 71. 3. The right ventricle appears mildly enlarged with mild reduction in RV systolic function. 4. No significant pulmonic insufficiency. 5. Moderate left atrial enlargement at 5.1 cm. 6. No mitral prolapse. There is mild mitral regurgitation. 7. The left ventricle appears to be normal in size with an end-diastolic dimension of 4.9. There is mild left ventricular hypertrophy with a posterior and interventricular septal wall thickness 1.2 and 1.3 cm, respectively. Normal LV systolic function. Estimated ejection fraction of 55% with normal wall motion. 8. Aortic valve appears somewhat calcified with restriction in motion, consistent with mild aortic stenosis. Peak gradient across valve is 17 with a mean of 7. Valve area is 1.9 cm2 by continuity equation. There is mild aortic insufficiency. 9. The aortic root does appear to be somewhat enlarged at the sinuses with a dimension of 4.3 cm. 10. No pericardial effusion seen. cc: MD Walter Cannon MD MTDD
[2016-08-20] MEDS: COLACE PO SCH (21:36)
[2016-08-20] MEDS: ZYPREXA PO SCH ×2 (21:36→23:59)
[2016-08-21] MEDS: LASIX IV SCH ×2 (00:11→12:26)
[2016-08-21] MEDS: OXY IR PO PRN (02:40)
[2016-08-21 06:05] LABS: MANUAL DIFF NEEDED? NO
[2016-08-21 06:09] LABS: BASO% 0.3 % (0.0-0.8); EOS# 0.19 X1000 (0.0-0.7); EOS% 2.5 % (0.0-10.0); HEMATOCRIT 35.8 % (42.0-52.0); HEMOGLOBIN 11.3 g/dL (14.0-18.0); LYMPH# 0.77 X1000 (1.2-3.4); MCH 28.6 PG (27-31); MCHC 31.6 g/dL (33-37); MCV 90.6 FL (81-99); MONO# 0.76 X1000 (0.11-0.59); MONO% 9.9 % (1.7-9.3); NEUT% 77.3 % (42.2-75.2); PLT 188 X1000 (130-400); RBC 3.95 XMIL (4.7-6.1)
[2016-08-21] MEDS: LOVENOX SUBQ SCH (06:14)
[2016-08-21] MEDS: SYNTHROID PO SCH (06:15)
[2016-08-21 06:44] LABS: CALCIUM 8.4 mg/dL (8.8-10.2); MAGNESIUM 1.8 mg/dL (1.5-2.7); POTASSIUM 4.2 mmol/L (3.5-5.1)
[2016-08-21] MEDS: ALDACTONE PO SCH (09:10)
[2016-08-21] MEDS: ASPIRIN PO SCH (09:26)
[2016-08-21] MEDS: LIPITOR PO SCH (09:26)
[2016-08-21] MEDS: CORDARONE PO SCH (09:30)
[2016-08-21] MEDS: LAMICTAL PO SCH ×2 (09:30→21:57)
[2016-08-21] MEDS: ICAR-C PLUS PO SCH (09:30)
[2016-08-21] MEDS: FLOMAX PO SCH ×2 (09:30→21:57)
[2016-08-21] MEDS: COREG PO SCH (09:31)
[2016-08-21] MEDS: ISORDIL PO SCH ×3 (09:31→16:27)
[2016-08-21] MEDS: PROTONIX PO SCH (09:31)
[2016-08-21] MEDS: PROSCAR PO SCH (09:32)
[2016-08-21] MEDS: KLONOPIN PO SCH ×2 (10:32→22:00)
--- NOTE | 2016-08-21 12:03 | PROGRESS NOTE ---
DATE: 08/21/2016 He had quite a bit of delirium last night. He pulled out his IV, confused. states he is talking about things that do not make any sense. We are going to get his Sandoval catheter out, get physical therapy to start walking him and make sure he is on is a Klonopin twice a day. He did get some Phenergan down in the emergency room and I will try and avoid any medications that might tip him over. He presented with shortness of breath related to his congestive heart failure, pulmonary venous hypertension. Breathing seems to be doing a little better.Vital signs: Temperature 97.7 degrees, pulse 79, respirations 22, blood pressure 118/70. CVP less than 6 cm. Respiratory: Lungs are clear. Decreased breath sounds both bases. Cardiovascular: Regular rhythm and rate without murmurs, S3. Urine output is close to 4 L so good urine output. White count 7710, hematocrit 35, platelet count 188,000. Sodium 138, potassium 4.2, chloride 96, bicarb 29, BUN 20, creatinine 1.6. CPK unremarkable. Troponin unremarkable. No sign of cardiac ischemia. Echocardiogram done read by Dr. Olivares yesterday, right atrium mildly enlarged. Moderate tricuspid regurgitation. Right systolic pressures around 71 mmHg. Right ventricle appears enlarged with mild reduction in right systolic function. Left ventricle appears to be normal size. There is mild left ventricular hypertrophy. Posterior and intraventricular septal wall thickness is 1.2-1.3 cm. LV systolic function looked good. Ejection fraction 55%. Normal wall motion. Aortic valve is somewhat calcified. There is mild aortic insufficiency. Mild aortic stenosis. Aortic root seems a little enlarged, dimension 4.3 cm. EXAM: Today sitting up in a chair.Vital signs: Temperature 97.7 degrees, pulse 79, respirations 22, blood pressure 118/70. HEENT: Pupils are equal, round. Lungs: Clear. As stated decreased breath sounds both bases. Cardiovascular: Regular rate without murmur or S3. The x-ray from yesterday no change, stable pacemaker, cardiomegaly, grossly stable diffuse bilateral peripheral interstitial opacities. ASSESSMENT AND PLAN: 1. Pulmonary venous hypertension, underlying COPD. He did no sign of active ischemia. Appears to be more diastolic dysfunction with a pulmonary hypertension. 2. History of coronary artery disease status post CABG. 3. Hypertension. 4. Chronic atrial fib. Rate appears controlled. He is status post Maze procedure. 5. AICD pacemaker placement. 6. Chronic kidney disease. 7. History of bipolar. 8. History of dementia. 9. Hypothyroidism. Recently have gone up on his Synthroid. Probably make another adjustment. 10. Take out his Sandoval catheter. Get physical therapy involved. Ask social service to help. cc: Walter Contreras MD
--- NOTE | 2016-08-21 12:34 | PROGRESS NOTE ---
DATE: 08/21/2016 SUBJECTIVE: Patient reports feeling improved and denies dyspnea on supplemental oxygen per nasal cannula. There has been no chest pain. OBJECTIVE: Blood pressure 118/70, heart rate 79 and regular, oxygen saturation 98% on 2 L per nasal cannula. There is no significant jugular venous distention.Chest: Clear to auscultation. Cardiac Exam: Reveals a regular rate and rhythm without appreciable murmur or gallop. Extremities: Demonstrate trace edema. IMPRESSION: 1. Acute on chronic congestive heart failure largely right-sided. This appears to have improved significantly with diuresis thus far. 2. Severe COPD requiring chronic home oxygen. 3. Atherosclerotic coronary disease, history of previous coronary bypass grafting. Left ventricle ejection fraction normal. 4. Chronic atrial fibrillation. Patient not felt to be a candidate for anticoagulation in the past due to history of GI blood loss. 5. Hypertension. 6. Hyperlipidemia. RECOMMENDATIONS: 1. Reasonable to transition back to oral diuretic therapy soon. 2. Conservative management overall in light of patient's comorbidities. cc: MD Walter Velez MD
[2016-08-21] MEDS: DUONEB (A & A) INH PRN ×2 (16:11→21:15)
[2016-08-21] MEDS: COLACE PO SCH (21:57)
[2016-08-21] MEDS: ZYPREXA PO SCH (21:58)
[2016-08-22] MEDS: TYLENOL PO PRN ×2 (01:55→17:35)
[2016-08-22] MEDS: LASIX IV SCH (01:55)
[2016-08-22 08:48] LABS: ALBUMIN 2.9 g/dL (3.5-5.0); MAGNESIUM 1.9 mg/dL (1.5-2.7); POTASSIUM 3.9 mmol/L (3.5-5.1); TOTAL BILIRUBIN 0.5 mg/dL (0.20-1.00); TOTAL PROTEIN 6.1 g/dL (6.3-8.3)
[2016-08-22] MEDS: LIPITOR PO SCH (08:57)
[2016-08-22] MEDS: ASPIRIN PO SCH (08:58)
[2016-08-22] MEDS: FLOMAX PO SCH ×2 (08:58→21:52)
[2016-08-22] MEDS: PROSCAR PO SCH (08:58)
[2016-08-22] MEDS: PROTONIX PO SCH (08:58)
[2016-08-22] MEDS: ISORDIL PO SCH ×3 (08:58→21:52)
[2016-08-22] MEDS: ALDACTONE PO SCH (08:58)
[2016-08-22] MEDS: ICAR-C PLUS PO SCH (08:58)
[2016-08-22] MEDS: CORDARONE PO SCH (08:58)
[2016-08-22] MEDS: LAMICTAL PO SCH ×2 (08:58→21:51)
[2016-08-22] MEDS: COREG PO SCH (08:58)
--- NOTE | 2016-08-22 11:07 | PROGRESS NOTE ---
DATE: 08/22/2016 CHIEF COMPLAINT: Shortness of breath, lethargy, cough. SUBJECTIVE: Mr. Brown is resting, sitting up in a chair. He is very sleepy; however, he wakes up to commands. He denies having any pain at this time. His breathing is more comfortable. He is more alert and oriented. OBJECTIVE: Blood pressure is 120/63, pulse 54, temperature 98.3, respirations 16. He is awake, follows commands. HEENT: Unremarkable. Chest: Diminished breath sounds diffusely. Occasional crepitus. Heart sounds are irregularly irregular. No gallop is noted. No definite murmur. Abdomen: Nontender. Extremities: No obvious edema. Neurologic: He follows commands. He has some stiffness in the neck and arms. DIAGNOSTIC DATA: Laboratory work today showed his sodium was 138, potassium 3.9, BUN is 35, creatinine 1.7. Albumin is low at 2.9. IMPRESSION: 1. Chronic systolic and diastolic heart failure with acute exacerbation. 2. Diffuse pulmonary infiltrates, questionable interstitial lung disease, questionable amiodarone toxicity. 3. Coronary artery disease with previous bypass surgery. 4. History of recurrent ventricular tachycardia for which he has been given ICD and also amiodarone. 5. History of chronic hyponatremia, presently well controlled. 6. Mental status changes, metabolic encephalopathy. 7. History of bipolar disease. 8. History of previous stroke. RECOMMENDATIONS: At this point in time, we will continue present management of his heart failure with loop diuretics and continue all of the other medications that he is normally on. I will check a C-reactive protein and a sedimentation rate. If they are elevated, I may want to do a CT of the chest without contrast looking for interstitial lung disease, possible amiodarone toxicity. Further advice will be forthcoming. cc: MD Walter Stephenson MD
[2016-08-22] MEDS ORDERED: SODIUM CHLORIDE 0.9% INJ ONE (11:19)
[2016-08-22] MEDS ORDERED: SYNTHROID IV ONE (11:19)
[2016-08-22] MEDS: DUONEB (A & A) INH PRN ×2 (16:16→21:15)
[2016-08-22] MEDS: NEOSPORIN OINTMENT TUBE TOP SCH (17:33)
[2016-08-22] MEDS: SYNTHROID PO SCH (18:04)
[2016-08-22] MEDS: KLONOPIN PO SCH ×2 (18:04→21:52)
[2016-08-22] MEDS: LOVENOX SUBQ SCH (18:04)
[2016-08-22] MEDS: COLACE PO SCH (21:51)
[2016-08-22] MEDS: ZYPREXA PO SCH (21:51)
[2016-08-23] MEDS: LOVENOX SUBQ SCH (06:00)
[2016-08-23] MEDS: SYNTHROID PO SCH (06:00)
[2016-08-23] MEDS: FLOMAX PO SCH ×2 (08:13→23:08)
[2016-08-23] MEDS: NEOSPORIN OINTMENT TUBE TOP SCH (08:13)
[2016-08-23] MEDS: ALDACTONE PO SCH (08:13)
[2016-08-23] MEDS: LAMICTAL PO SCH ×2 (08:14→23:09)
[2016-08-23] MEDS: ICAR-C PLUS PO SCH (08:14)
[2016-08-23] MEDS: LIPITOR PO SCH (08:16)
[2016-08-23] MEDS: PROSCAR PO SCH (08:16)
[2016-08-23] MEDS: LASIX PO SCH (08:16)
[2016-08-23] MEDS: CORDARONE PO SCH (08:16)
[2016-08-23] MEDS: PROTONIX PO SCH (08:16)
[2016-08-23] MEDS: KLONOPIN PO SCH ×2 (08:16→23:09)
[2016-08-23] MEDS: COREG PO SCH (08:17)
[2016-08-23] MEDS: ISORDIL PO SCH ×3 (08:17→17:09)
[2016-08-23] MEDS: ASPIRIN PO SCH (08:17)
--- NOTE | 2016-08-23 09:50 | Diag Imaging Result Document ---
PROCEDURE NAME: CT THORAX W/O CONTRAST - 08/23/2016 CT THORAX WITHOUT CONTRAST: TECHNIQUE: No contrast administered per request of the referring provider. A dose reduction protocol was used. Compared with 01/28/2015. FINDINGS: There are bilateral interstitial opacities which are mildly increased compared to previous exam. There is associated honeycombing which is most conspicuous at the lung periphery in some areas. The findings are suggestive of bilateral interstitial fibrosis. There is mild pleural thickening bilaterally. There is no focal dense consolidation, substantial pleural effusion, or pneumothorax identified. There is cardiomegaly similar to the previous exam. There is mild mediastinal adenopathy which appears grossly stable. Included sections of upper abdomen show small low-density and hyperdense lesions at the visualized bilateral mid and upper kidneys. These are grossly similar to the previous exam and may represent a combination of simple and complicated cysts. There are atherosclerotic calcifications noted, including prominent calcifications at the proximal superior mesenteric artery. IMPRESSION: 1. Evidence of bilateral pulmonary fibrosis. 2. Mild mediastinal adenopathy which appears grossly stable. 3. Stable cardiomegaly.
[2016-08-23] MEDS: BREO ELLIPTA 100/25 MCG INH INH SCH (10:35)
--- NOTE | 2016-08-23 14:40 | PROGRESS NOTE ---
DATE: 08/23/2016 CHIEF COMPLAINT: Shortness of breath, weakness. SUBJECTIVE: Mr. Brown is still sleepy; however, he does wake up more readily to commands. is at the bedside. He denies having any chest pain. OBJECTIVE: Blood pressure is 116/62, temperature 98.6, pulse 71, respirations 16. He is arousable, sits up in the bed. Neck veins are not distended. Chest: Symmetrical breath sounds with bilateral velcro-like crackles. Heart sounds are irregularly irregular, systolic murmur is noted 1 to 2/6. No gallop. Abdomen is nontender. Extremities showed no edema. Neurologic: He follows commands and moves all 4 extremities. DIAGNOSTIC DATA: Sedimentation rate was done yesterday and was 17 mm per hour. C-reactive protein was 13.2 mg/L, normal is less than 5. His sodium is 138, potassium 3.9, BUN is 35, creatinine 1.7. Albumin is 2.9. His telemetry shows atrial fibrillation with controlled response. CT scan of the chest was done today, and that shows bilateral infiltrates, pulmonary fibrosis with mild mediastinal adenopathy and stable cardiomegaly. IMPRESSION: 1. The patient presented with lethargy and some mental status changes, like metabolic encephalopathy that appeared to be clearing up. 2. Chronic systolic and diastolic heart failure with acute exacerbation which is improving. 3. Diffuse pulmonary infiltrates with CT evidence of pulmonary fibrosis. 4. Coronary artery disease, previous bypass surgery. 5. History of recurrent ventricular tachycardia. 6. Status post AICD implantation. 7. History of bipolar disease. 8. History of previous stroke. RECOMMENDATIONS: At this point in time, Mr. Brown appears to be improving gradually. I believe that he would be a very good candidate for placement at rehab for 3 weeks to do some strengthening exercises. As far as medications, I would not make any changes yet. We will follow him along. cc: MD Walter Stephenson MD
[2016-08-23] MEDS: TYLENOL PO PRN (15:13)
[2016-08-23] MEDS: DUONEB (A & A) INH PRN (16:00)
[2016-08-23] MEDS: COLACE PO SCH (23:08)
[2016-08-23] MEDS: ZYPREXA PO SCH (23:10)
[2016-08-24] MEDS: LOVENOX SUBQ SCH (06:13)
[2016-08-24] MEDS: SYNTHROID PO SCH (06:13)
[2016-08-24] MEDS: DUONEB (A & A) INH PRN ×2 (09:41→15:58)
[2016-08-24] MEDS: BREO ELLIPTA 100/25 MCG INH INH SCH (09:41)
[2016-08-24] MEDS: ALDACTONE PO SCH (10:12)
[2016-08-24] MEDS: ISORDIL PO SCH ×3 (10:12→20:34)
[2016-08-24] MEDS: PROSCAR PO SCH (10:12)
[2016-08-24] MEDS: ASPIRIN PO SCH (10:12)
[2016-08-24] MEDS: ICAR-C PLUS PO SCH (10:12)
[2016-08-24] MEDS: CORDARONE PO SCH (10:12)
[2016-08-24] MEDS: FLOMAX PO SCH ×2 (10:13→20:34)
[2016-08-24] MEDS: PROTONIX PO SCH (10:13)
[2016-08-24] MEDS: LAMICTAL PO SCH ×2 (10:13→20:34)
[2016-08-24] MEDS: KLONOPIN PO SCH ×2 (10:13→20:34)
[2016-08-24] MEDS: LIPITOR PO SCH (10:14)
[2016-08-24] MEDS: LASIX PO SCH (10:14)
[2016-08-24] MEDS: NEOSPORIN OINTMENT TUBE TOP SCH (10:19)
[2016-08-24] MEDS: COREG PO SCH (11:15)
--- NOTE | 2016-08-24 13:21 | PROGRESS NOTE ---
DATE: 08/24/2016 SUBJECTIVE: Mr. Brown still some trouble breathing but he seems to think he is doing better. 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 He appears comfortable. No pain. Breathing comfortably present. OBJECTIVE: Vital signs: Temperature 97.9 degrees, pulse 64, respirations 15. Lungs: Are clear in all lung pham. Cardiovascular: Regular rhythm and rate without murmur or S3. Abdomen: Soft. Skin: Is warm and dry. Urine output is 1700 mL. LAB: White count 7710, hematocrit 35, platelet count 188,000. Chemistry. Sodium 138, potassium 3.9, chloride 97, BUN 35, creatinine 1.7 which is stable. ASSESSMENT AND PLAN: 1. The patient presented with lethargy and some mental status changes likely a combination multifactorial metabolic encephalopathy with underlying dementia. 2. Chronic systolic and diastolic heart failure with acute exacerbation which is improving. 3. Diffuse pulmonary infiltrates and CT evidence of pulmonary fibrosis. 4. Coronary artery disease. Previous bypass surgery. 5. Recurrent ventricular tachycardia. Aware. 6. Status post implantable cardioverter defibrillator implantation. 7. History of bipolar disease which has been under good control for a long time. 8. History of previous cerebrovascular accident, general weakness and deconditioning. Trying to get him to rehab. Family discussing what they want to do long-term plans. They would like to see how he does in rehab. Note CT of the chest evidence of bilateral pulmonary fibrosis, mild mediastinal adenopathy. Appears to be grossly stable, stable cardiomegaly. Reviewed his orders I do not see any change at this point. He does have benign prostatic hypertrophy as well and he is on the Flomax so he is taking Flomax 0.4 mg b.i.d., spironolactone 12.5 daily, MiraLAX 17 g daily, Protonix 40 mg a day, oxycodone IR 10 mg q.8 hours p.r.n. pain, Zyprexa 10 mg at bedtime, levothyroxine 100 mcg daily, Lamictal 100 mg b.i.d., isosorbide dinitrate 20 mg t.i.d., iron carbonyl 1 a day, Lasix 40 mg a day, fluticasone 1 puff daily, Proscar 5 mg a day, Dulcolax 100 mg at bedtime, he is on Lovenox 30 mg subcutaneous daily, Klonopin 1 mg b.i.d., Coreg 6.25 mg daily, Lipitor 5 mg a day and aspirin 81 mg a day, amiodarone 200 mg a day, Synthroid he is on 50 mcg which they gave him 1 dose of the . We have recently increased his levothyroxine to 100 mg. cc: Walter Contreras MD
--- NOTE | 2016-08-24 13:26 | PROGRESS NOTE ---
DATE: 08/24/2016 SUBJECTIVE: Patient currently eating and appears awake. He denies chest discomfort or dyspnea and is currently on room air. OBJECTIVE: Vital signs: Blood pressure 133/59, heart rate 76 and regular, oxygen saturation 97% on room air. Neck: There is no significant JV distention. Chest: Auscultation of chest reveals some bibasilar coarse crackles. Cardiac exam: Irregular rate and rhythm with grade 2/6 systolic murmur. Extremities: Without edema. DIAGNOSTIC DATA: Chest CT did reports evidence of bilateral pulmonary fibrosis. IMPRESSION: 1. Acute on chronic congestive heart failure largely right-sided. This appears to improved, significantly diuresis. 2. Severe chronic obstructive pulmonary disease as well as pulmonary fibrosis which has required chronic home oxygen in the past. 3. Atherosclerotic coronary disease with history of previous coronary bypass grafting. Left ventricular ejection fraction normal. 4. Chronic atrial fibrillation. Patient not felt to be a candidate for anticoagulation due to past history of gastrointestinal blood loss. 5. Hypertension. 6. Hyperlipidemia. RECOMMENDATIONS: Continue current cardiovascular regimen unchanged. Will see patient further on an as-needed basis. cc: MD Walter Velez MD
[2016-08-24] MEDS: OXY IR PO PRN (15:34)
[2016-08-24] MEDS ORDERED: NON-FORMULARY MED PO ONE (18:00)
[2016-08-24] MEDS: COLACE PO SCH (20:34)
[2016-08-24] MEDS: ZYPREXA PO SCH (20:46)
[2016-08-25] MEDS: SYNTHROID PO SCH ×2 (05:57→09:31)
[2016-08-25] MEDS: LOVENOX SUBQ SCH (05:57)
[2016-08-25] MEDS: OXY IR PO PRN ×2 (06:21→13:17)
[2016-08-25] MEDS: DUONEB (A & A) INH PRN (07:34)
[2016-08-25] MEDS: BREO ELLIPTA 100/25 MCG INH INH SCH (07:36)
[2016-08-25] MEDS: FLOMAX PO SCH ×2 (09:29→21:31)
[2016-08-25] MEDS: ASPIRIN PO SCH (09:29)
[2016-08-25] MEDS: ICAR-C PLUS PO SCH (09:29)
[2016-08-25] MEDS: LIPITOR PO SCH (09:30)
[2016-08-25] MEDS: ALDACTONE PO SCH (09:30)
[2016-08-25] MEDS: CORDARONE PO SCH (09:30)
[2016-08-25] MEDS: COREG PO SCH (09:30)
[2016-08-25] MEDS: LASIX PO SCH (09:30)
[2016-08-25] MEDS: PROTONIX PO SCH (09:30)
[2016-08-25] MEDS: PROSCAR PO SCH (09:30)
[2016-08-25] MEDS: ISORDIL PO SCH ×3 (09:30→17:44)
[2016-08-25] MEDS: LAMICTAL PO SCH ×2 (09:30→21:31)
[2016-08-25] MEDS: KLONOPIN PO SCH ×2 (09:31→21:32)
[2016-08-25] MEDS: NEOSPORIN OINTMENT TUBE TOP SCH (09:31)
--- NOTE | 2016-08-25 17:18 | PROGRESS NOTE ---
DATE: 08/25/2016 Mr. Brown is still having some confusion and tries get out of bed at night. Still some delirium. Breathing is better. He does have a little bit of a headache today. Temp 99.1 degrees, pulse 72, respirations 18, blood pressure 93/70.HEENT: Pupils are equal and round. Lungs: Are clear in all lung pham. Cardiovascular: Regular rhythm and rate without murmur or S3. Abdomen: Soft. Skin: Warm and dry. O2 saturation 97%. Urine output is 1400 mL. LAB: Chemistries reviewed from the and CBC reviewed. ASSESSMENT AND PLAN: 1. Acute on chronic congestive heart failure. Largely right-sided. Appears to be improved. Significant diuresis, significantly diuresed. 2. Severe chronic obstructive pulmonary disease and pulmonary fibrosis. Has required home oxygen and will probably continue to need that. 3. Atherosclerotic coronary disease with previous coronary bypass grafting. Ejection fraction is normal. 4. Chronic atrial fibrillation. Patient not a candidate for anticoagulation because of history of GI blood loss and risk for fall. 5. Hypertension. 6. Hyperlipidemia. 7. History of bipolar. She has been well controlled. 8. History of dementia having some delirium and sundowning at night. We will stop the Klonopin in the morning and we will go up on his Zyprexa at night and see if that will help. We are looking for rehab placement. cc: Walter Contreras MD
[2016-08-25] MEDS: COLACE PO SCH (21:31)
[2016-08-25] MEDS: ZYPREXA PO SCH (21:31)
[2016-08-26] MEDS: SYNTHROID PO SCH (06:03)
[2016-08-26] MEDS: LOVENOX SUBQ SCH (06:03)
[2016-08-26] MEDS: BREO ELLIPTA 100/25 MCG INH INH SCH (07:38)
[2016-08-26] MEDS: LIPITOR PO SCH (09:12)
[2016-08-26] MEDS: PROSCAR PO SCH (09:12)
[2016-08-26] MEDS: COREG PO SCH (09:12)
[2016-08-26] MEDS: PROTONIX PO SCH (09:12)
[2016-08-26] MEDS: ICAR-C PLUS PO SCH (09:13)
[2016-08-26] MEDS: ISORDIL PO SCH ×3 (09:13→16:56)
[2016-08-26] MEDS: CORDARONE PO SCH (09:13)
[2016-08-26] MEDS: ASPIRIN PO SCH (09:13)
[2016-08-26] MEDS: FLOMAX PO SCH ×2 (09:13→21:43)
[2016-08-26] MEDS: LAMICTAL PO SCH ×2 (09:13→21:43)
[2016-08-26] MEDS: LASIX PO SCH (09:13)
[2016-08-26] MEDS: ALDACTONE PO SCH (09:13)
[2016-08-26] MEDS: OXY IR PO PRN ×2 (11:08→21:46)
[2016-08-26] MEDS: NEOSPORIN OINTMENT TUBE TOP SCH (11:10)
--- NOTE | 2016-08-26 16:12 | PROGRESS NOTE ---
DATE: 08/26/2016 SUBJECTIVE: Mr. Brown is sleeping comfortably. I think he had a better night. A little bit agitated and confused this morning but doing better today. Breathing comfortably. No pedal edema. OBJECTIVE: Vital signs: Temperature 98.4 degrees, pulse 90, respirations 28, blood pressure 100/45. HEENT: Pupils are equal, round. Lungs: Clear in all lung pham. Cardiovascular: Regular rhythm and rate without murmur or S3. Abdomen: Soft. Skin: Warm and dry. : Good urine output. LABORATORY DATA: No new lab from the . ASSESSMENT AND PLAN: 1. Acute on chronic congestive heart failure, largely right-sided. I think he is fairly well compensated. He did respond to diuresis. Afterload and preload I think is controlled. Blood pressures I think are optimal right now. 2. Severe chronic obstructive pulmonary disease with some pulmonary fibrosis. Continue O2. 3. Atherosclerotic coronary artery disease, status post coronary artery bypass graft. Ejection fraction is normal. 4. Chronic atrial fibrillation. Patient not a candidate for anticoagulation because of history of GI bleed and risk for fall. 5. Hypertension. 6. Hyperlipidemia. 7. Bipolar disease which has been well controlled. 8. Dementia. He does have episodes of confusion. Overall seems to be doing better and seems to be controlled with clonidine. We did make some adjustments on his medications and went up on the Zyprexa yesterday. So, await placement, hoping to get him into rehab. cc: Walter Contreras MD
[2016-08-26] MEDS: KLONOPIN PO SCH (21:43)
[2016-08-26] MEDS: COLACE PO SCH (21:43)
[2016-08-26] MEDS: ZYPREXA PO SCH (21:43)
[2016-08-27] MEDS: TYLENOL PO PRN ×2 (04:44→23:37)
[2016-08-27] MEDS: LOVENOX SUBQ SCH (06:00)
[2016-08-27] MEDS: OXY IR PO PRN ×2 (06:00→15:54)
[2016-08-27] MEDS: SYNTHROID PO SCH (06:00)
--- NOTE | 2016-08-27 08:13 | PROGRESS NOTE ---
DATE: 08/27/2016 SUBJECTIVE: Mr. Brown had an uneventful night. Still he keeps a headache. Apparently, he slept pretty well. He said he is waiting on breakfast. No other complaints of pain. Breathing comfortably. PHYSICAL EXAMINATION: Vital Signs: Temperature 98.5 degrees, pulse 65, respirations 12, blood pressure 105/55. HEENT: Pupils are equal and round. Lungs: Are clear in all lung pham. Cardiovascular Examination: Regular rhythm and rate without murmur or S3. Abdomen: Soft. Skin: Warm and dry. LABORATORY DATA: No new labs. I think I will repeat some tomorrow. ASSESSMENT AND PLAN: 1. Acute on chronic congestive heart failure, mainly right-sided. He has seems to be well compensated at this time. Breathing comfortably. He does require O2. 2. Severe chronic obstructive pulmonary disease with fibrosis. He has O2 per nasal cannula. 3. Atherosclerotic coronary artery disease, status post bypass graft. Ejection fraction normal. 4. Chronic atrial fibrillation. Patient not a candidate for anticoagulation because of history of gastrointestinal bleed and risk for fall. 5. Hypertension. 6. Hyperlipidemia. 7. Bipolar disease which has been well controlled. 8. Dementia. He has episodes of confusion and delirium. This seems to be doing a little better. We have adjusted his medication, gone up on his Zyprexa at night and seems to be doing better that way. 9. Benign prostatic hypertrophy. REVIEW OF ORDERS: He is on Flomax 0.4 mg b.i.d., Aldactone 12.5 mg daily, MiraLAX 17 g daily, Protonix 40 mg a day, oxycodone 10 mg p.o. q.8 hours, Zyprexa 50 mg at bedtime, Synthroid 100 mcg daily, Lamictal 100 mg b.i.d., isosorbide dinitrate 20 mg t.i.d., iron carbonyl 1 daily, Lasix 40 mg a day, fluticasone 1 puff daily, Proscar 5 mg a day, docusate 100 mg daily at bedtime, Klonopin 1 mg at bedtime, Coreg 6.25 mg daily, Lipitor 5 mg a day, aspirin 81 mg a day, Cordarone 200 mg daily, and levothyroxine, he is on 100. I am going to check his T4, TSH, and electrolytes, and CBC again tomorrow. cc: Walter Contreras MD
[2016-08-27] MEDS: CORDARONE PO SCH (09:39)
[2016-08-27] MEDS: PROSCAR PO SCH (09:39)
[2016-08-27] MEDS: LASIX PO SCH (09:39)
[2016-08-27] MEDS: ICAR-C PLUS PO SCH (09:39)
[2016-08-27] MEDS: LAMICTAL PO SCH ×2 (09:40→23:32)
[2016-08-27] MEDS: LIPITOR PO SCH (09:40)
[2016-08-27] MEDS: FLOMAX PO SCH ×2 (09:40→23:32)
[2016-08-27] MEDS: PROTONIX PO SCH (09:41)
[2016-08-27] MEDS: ASPIRIN PO SCH (09:41)
[2016-08-27] MEDS: ALDACTONE PO SCH (09:44)
[2016-08-27] MEDS: COREG PO SCH (09:44)
[2016-08-27] MEDS: ISORDIL PO SCH ×3 (09:45→16:37)
[2016-08-27] MEDS: NEOSPORIN OINTMENT TUBE TOP SCH (09:46)
[2016-08-27] MEDS: BREO ELLIPTA 100/25 MCG INH INH SCH ×2 (10:03→10:16)
[2016-08-27] MEDS: ZYPREXA PO SCH (23:32)
[2016-08-27] MEDS: COLACE PO SCH (23:32)
[2016-08-28 05:05] LABS: MANUAL DIFF NEEDED? NO
[2016-08-28 05:11] LABS: BASO% 0.2 % (0.0-0.8); EOS# 0.11 X1000 (0.0-0.7); EOS% 1.7 % (0.0-10.0); HEMATOCRIT 32.7 % (42.0-52.0); LYMPH# 0.56 X1000 (1.2-3.4); LYMPH% 8.7 % (20.5-51.1); MCH 27.5 PG (27-31); MCHC 30.6 g/dL (33-37); MCV 89.8 FL (81-99); MONO# 0.83 X1000 (0.11-0.59); MONO% 12.9 % (1.7-9.3); MPV 8.9 FL (7.4-10.4); NEUT% 76.5 % (42.2-75.2); PLT 172 X1000 (130-400); RBC 3.64 XMIL (4.7-6.1)
[2016-08-28 05:27] LABS: CALCIUM 8.4 mg/dL (8.8-10.2); MAGNESIUM 2.1 mg/dL (1.5-2.7); POTASSIUM 4.7 mmol/L (3.5-5.1)
[2016-08-28 06:17] LABS: FREE T4 1.08 ng/dL (0.93-1.70)
[2016-08-28] MEDS: LOVENOX SUBQ SCH (06:24)
[2016-08-28] MEDS: SYNTHROID PO SCH (06:24)
[2016-08-28] MEDS: TYLENOL PO PRN ×2 (06:24→17:58)
[2016-08-28] MEDS: OXY IR PO PRN ×3 (06:31→23:25)
[2016-08-28] MEDS: BREO ELLIPTA 100/25 MCG INH INH SCH (09:23)
[2016-08-28] MEDS: ASPIRIN PO SCH (11:44)
[2016-08-28] MEDS: CORDARONE PO SCH (11:44)
[2016-08-28] MEDS: PROTONIX PO SCH (11:45)
[2016-08-28] MEDS: ISORDIL PO SCH ×3 (11:45→16:54)
[2016-08-28] MEDS: LIPITOR PO SCH (11:45)
[2016-08-28] MEDS: LAMICTAL PO SCH ×2 (11:46→23:26)
[2016-08-28] MEDS: PROSCAR PO SCH (11:46)
[2016-08-28] MEDS: ALDACTONE PO SCH (11:46)
[2016-08-28] MEDS: ICAR-C PLUS PO SCH (11:46)
[2016-08-28] MEDS: FLOMAX PO SCH ×2 (11:46→23:26)
[2016-08-28] MEDS: COREG PO SCH (11:47)
[2016-08-28] MEDS: LASIX PO SCH (11:47)
--- NOTE | 2016-08-28 13:30 | PROGRESS NOTE ---
DATE: 08/28/2016 SUBJECTIVE: Mr. Brown is awake and alert. Still says he has a headache that is about the same. No other complaints. OBJECTIVE: Vital Signs: Temperature 98.4 degrees, pulse 75, respirations 18, blood pressure 130/82. HEENT: Pupils are equal and round. Lungs: Clear in all lung pham. Cardiovascular: Regular rhythm and rate, without murmur or S3. Abdomen: Soft. Skin: Warm and dry. LABORATORY: White count is 6440, hematocrit 32, platelet count 172,000. Sodium 132, potassium 4.7, chloride 93, BUN 48, creatinine 1.7. TSH was 16.73 and T4 was 1.08. We just recently increased his thyroid supplement. ASSESSMENT AND PLAN: 1. Acute on chronic congestive heart failure, predominantly right-sided, doing much better. Good compensation. 2. Severe chronic obstructive pulmonary disease with fibrosis. He is on O2. 3. Atherosclerotic coronary artery disease. I have adjusted his nitrates down to try to help his headache. So far, has not helped. 4. Chronic atrial fibrillation. Rate is controlled. 5. Hypertension. 6. Hyperlipidemia. 7. Bipolar disease, well controlled. 8. Dementia with some delirium, and that seems to be a little better. We had increased his Zyprexa. 9. Benign prostatic hypertrophy. We are waiting on a rehabilitation bed. 10. Recent laboratory checked this morning. Electrolytes look good. Serum creatinine is about the same. cc: Walter Contreras MD
[2016-08-28] MEDS: NEOSPORIN OINTMENT TUBE TOP SCH (16:55)
[2016-08-28] MEDS: DUONEB (A & A) INH PRN (18:31)
[2016-08-28] MEDS: DUONEB (A & A) INH SCH (22:37)
[2016-08-28] MEDS: KLONOPIN PO SCH ×2 (23:25→23:26)
[2016-08-28] MEDS: ZYPREXA PO SCH (23:25)
[2016-08-28] MEDS: COLACE PO SCH (23:26)
[2016-08-29] MEDS: DUONEB (A & A) INH SCH ×5 (03:10→19:35)
[2016-08-29] MEDS: TYLENOL PO PRN ×2 (06:55→13:50)
[2016-08-29] MEDS: LOVENOX SUBQ SCH (06:55)
[2016-08-29] MEDS: SYNTHROID PO SCH (06:55)
[2016-08-29] MEDS: BREO ELLIPTA 100/25 MCG INH INH SCH (07:56)
[2016-08-29] MEDS: ASPIRIN PO SCH (10:46)
[2016-08-29] MEDS: LAMICTAL PO SCH ×2 (10:46→21:08)
[2016-08-29] MEDS: LIPITOR PO SCH (10:46)
[2016-08-29] MEDS: PROTONIX PO SCH (10:47)
[2016-08-29] MEDS: ICAR-C PLUS PO SCH (10:47)
[2016-08-29] MEDS: ALDACTONE PO SCH (10:49)
[2016-08-29] MEDS: FLOMAX PO SCH ×2 (10:50→21:08)
[2016-08-29] MEDS: COREG PO SCH (10:50)
[2016-08-29] MEDS: PROSCAR PO SCH (10:51)
[2016-08-29] MEDS: LASIX PO SCH (10:51)
[2016-08-29] MEDS: CORDARONE PO SCH (10:51)
[2016-08-29] MEDS: KLONOPIN PO SCH ×2 (10:57→21:08)
[2016-08-29] MEDS: NEOSPORIN OINTMENT TUBE TOP SCH (10:59)
--- NOTE | 2016-08-29 11:47 | PROGRESS NOTE ---
DATE: 08/29/2016 SUBJECTIVE: He is awake. He was kind of yelling out that he wants to go home. He states his headache is about the same. OBJECTIVE: Vital signs: Temperature 98.3 degrees, pulse 52, respirations 14, blood pressure 125/69. Lungs: Clear in all lung pham. Cardiovascular: Regular rhythm and rate, without murmur or S3. Abdomen: Soft. Skin: Warm and dry. He ate most of his breakfast. He wants to get up out of bed. LABORATORY: White count 6440, hematocrit 32, platelet count 172,009. Sodium 132, potassium 4.7, chloride 93, BUN 48, and creatinine 1.7, which has been stable. ASSESSMENT AND PLAN: 1. Acute on chronic congestive heart failure that appears to be well compensated at this time. 2. Severe chronic obstructive pulmonary disease. He is on O2. The gas exchange and air exchange is good. 3. Atherosclerotic coronary artery disease. I did cut down his nitrates to see if it would help his headache. So far, that has not helped. I may make some more adjustments. 4. Chronic atrial fibrillation, rate controlled. 5. Hypertension. 6. Hyperlipidemia. 7. Bipolar disease. 8. Dementia with delirium. May give him a dose of Zyprexa in the morning, as well, or maybe put him back on his morning Klonopin. 9. Benign prostatic hypertrophy. Stable. REVIEW OF HIS ORDERS: The patient is on Flomax 0.4 mg b.i.d., Aldactone 12.5 mg daily, Protonix 40 mg a day, and MiraLAX 17 g daily. Oxycodone he was taking for pain q.8 and will cut that down and see if that helps the headaches. He is taking Zyprexa 15 mg at bedtime, Synthroid 100 mcg daily, Lamictal 100 mg b.i.d., isosorbide dinitrate 10 mg t.i.d., iron carbonyl 1 daily, Lasix 40 mg a day, Proscar 5 mg a day, fluticasone 1 puff daily, docusate 100 mg at bedtime, Klonopin 1 mg at bedtime, Coreg 6.25 mg daily, Lipitor 0.5 mg daily, aspirin 81 mg a day, and Cordarone 200 mg daily. I am going to try 0.5 of Klonopin in the morning. I am going to see if we can cut out the Isordil and see if that would further help in his headaches. cc: Walter Contreras MD
[2016-08-29] MEDS: OXY IR PO PRN (21:07)
[2016-08-29] MEDS: COLACE PO SCH (21:08)
[2016-08-29] MEDS: ZYPREXA PO SCH (21:08)
[2016-08-30] MEDS: SYNTHROID PO SCH (06:16)
[2016-08-30] MEDS: LOVENOX SUBQ SCH (06:16)
[2016-08-30] MEDS: OXY IR PO PRN ×2 (06:16→22:59)
[2016-08-30] MEDS: BREO ELLIPTA 100/25 MCG INH INH SCH (07:34)
[2016-08-30] MEDS: DUONEB (A & A) INH SCH ×5 (07:34→22:41)
[2016-08-30] MEDS: LASIX PO SCH (08:46)
[2016-08-30] MEDS: NEOSPORIN OINTMENT TUBE TOP SCH (08:46)
[2016-08-30] MEDS: LIPITOR PO SCH (08:47)
[2016-08-30] MEDS: ICAR-C PLUS PO SCH (08:47)
[2016-08-30] MEDS: CORDARONE PO SCH (08:47)
[2016-08-30] MEDS: LAMICTAL PO SCH ×2 (08:48→22:58)
[2016-08-30] MEDS: ASPIRIN PO SCH (08:48)
[2016-08-30] MEDS: COREG PO SCH (08:48)
[2016-08-30] MEDS: FLOMAX PO SCH ×2 (08:48→22:59)
[2016-08-30] MEDS: PROSCAR PO SCH (08:48)
[2016-08-30] MEDS: PROTONIX PO SCH (08:48)
[2016-08-30] MEDS: ALDACTONE PO SCH (08:49)
[2016-08-30] MEDS: KLONOPIN PO SCH ×2 (08:49→23:08)
[2016-08-30] MEDS: TYLENOL PO PRN (15:23)
--- NOTE | 2016-08-30 16:50 | PROGRESS NOTE ---
DATE: 08/30/2016 SUBJECTIVE: Mr. Brown says his headache is the same. He tried to get up again last night. He appears comfortable at the present time. States his breathing is comfortable. PHYSICAL EXAMINATION: Vital Signs: Temperature 98.5 degrees, pulse 102, respirations 20, blood pressure 123/71. Lungs: Clear anterolateral. Cardiovascular: Regular rhythm and rate without murmur or S3. : Urine output of almost 3 L. Extremities: No pedal edema. LAB: Reviewed lab from the . ASSESSMENT AND PLAN: 1. History of congestive heart failure, predominantly right-sided. He has some diastolic dysfunction and pulmonary hypertension. 2. Chronic obstructive pulmonary disease. He is on chronic O2. Gas exchange and air exchange is doing well. 3. History of coronary artery disease. We did cut down his nitrites. I do not know that helped his headache any so I may just put him back on his previous dose. 4. Atrial fibrillation, rate controlled. 5. Hypertension. 6. Bipolar disease which is stable. 7. Dementia with some delirium. We have adjusted medications. I added back Klonopin 0.5 mg in the morning but it seems to make him too sleepy. We will restart his Isordil, give it another day, and see how we do with his headaches. REVIEW OF HIS ORDERS: I do not know that I see any change at this point. cc: Walter Contreras MD
[2016-08-30] MEDS: ZYPREXA PO SCH (22:58)
[2016-08-30] MEDS: COLACE PO SCH (22:59)
[2016-08-31 06:31] LABS: CALCIUM 8.2 mg/dL (8.8-10.2); POTASSIUM 5.1 mmol/L (3.5-5.1)
[2016-08-31] MEDS: DUONEB (A & A) INH SCH ×6 (07:38→23:19)
[2016-08-31] MEDS: BREO ELLIPTA 100/25 MCG INH INH SCH ×2 (07:39→11:20)
[2016-08-31] MEDS: LOVENOX SUBQ SCH (07:56)
[2016-08-31] MEDS: SYNTHROID PO SCH (07:56)
[2016-08-31] MEDS: NEOSPORIN OINTMENT TUBE TOP SCH (09:02)
[2016-08-31] MEDS: KLONOPIN PO SCH ×2 (10:38→20:21)
[2016-08-31] MEDS: COREG PO SCH (10:38)
[2016-08-31] MEDS: LASIX PO SCH (10:38)
[2016-08-31] MEDS: ASPIRIN PO SCH (10:38)
[2016-08-31] MEDS: ICAR-C PLUS PO SCH (10:39)
[2016-08-31] MEDS: CORDARONE PO SCH (10:39)
[2016-08-31] MEDS: FLOMAX PO SCH ×2 (10:39→20:21)
[2016-08-31] MEDS: PROTONIX PO SCH (10:39)
[2016-08-31] MEDS: LAMICTAL PO SCH ×2 (10:39→20:21)
[2016-08-31] MEDS: PROSCAR PO SCH (10:39)
[2016-08-31] MEDS: LIPITOR PO SCH (10:39)
[2016-08-31] MEDS: ALDACTONE PO SCH (10:39)
[2016-08-31] MEDS: OXY IR PO PRN (13:42)
[2016-08-31] MEDS: COLACE PO SCH (20:21)
[2016-08-31] MEDS: ZYPREXA PO SCH (20:21)
--- NOTE | 2016-08-31 20:23 | PROGRESS NOTE ---
DATE: 08/31/2016 SUBJECTIVE: Mr. Brown was about to eat supper. He says he is doing all right. OBJECTIVE: Vital signs: Temperature 98.3 degrees, pulse 72, respirations 15, blood pressure 112/55. HEENT: Pupils are equal. Lungs: Clear in all lung pham. Cardiovascular: Regular rhythm and rate without murmur or S3. Abdomen: Soft. Skin: Warm and dry. ASSESSMENT AND PLAN: 1. History of congestive heart failure, predominantly right side. He has some diastolic dysfunction and pulmonary hypertension. 2. Chronic chronic obstructive pulmonary disease on chronic O2. He is doing well from a Respiratory standpoint. 3. Coronary artery disease. I did cut down his nitrates and see if helped his headache. 4. Atrial fibrillation. Rate controlled. 5. Hypertension. 6. Bipolar disease which is stable. 7. Dementia. Had some episodes of some confusion. Much better. Seems to be much better controlled. 8. Review was orders: I do not see anything to change at this point. Lab reviewed. Chemistries reviewed. Serum creatinine is about the same. Chest CT done on 08/23: Evidence of bilateral pulmonary fibrosis. Mild mediastinal adenopathy. Appears to be grossly stable and stable cardiomegaly. Still waiting to whether he will be approved to go to rehab. Supposed to hear today. Continue physical therapy. cc: Walter Contreras MD
[2016-08-31] MEDS: TYLENOL PO PRN (23:39)
[2016-09-01] MEDS: OXY IR PO PRN ×2 (03:35→11:41)
[2016-09-01] MEDS: DUONEB (A & A) INH SCH ×3 (03:37→11:34)
[2016-09-01] MEDS: SYNTHROID PO SCH (06:28)
[2016-09-01] MEDS: LOVENOX SUBQ SCH (06:28)
[2016-09-01 07:44] VITALS: BP 131/71
[2016-09-01] MEDS: BREO ELLIPTA 100/25 MCG INH INH SCH (08:00)
[2016-09-01] MEDS: TYLENOL PO PRN (08:57)
[2016-09-01] MEDS: PROSCAR PO SCH (08:58)
[2016-09-01] MEDS: KLONOPIN PO SCH (08:58)
[2016-09-01] MEDS: ASPIRIN PO SCH (08:58)
[2016-09-01] MEDS: COREG PO SCH (08:58)
[2016-09-01] MEDS: CORDARONE PO SCH (08:58)
[2016-09-01] MEDS: LIPITOR PO SCH (08:58)
[2016-09-01] MEDS: ICAR-C PLUS PO SCH (08:58)
[2016-09-01] MEDS: PROTONIX PO SCH (08:58)
[2016-09-01] MEDS: LAMICTAL PO SCH (08:58)
[2016-09-01] MEDS: FLOMAX PO SCH (08:58)
[2016-09-01] MEDS: ALDACTONE PO SCH (08:59)
[2016-09-01] MEDS: LASIX PO SCH (08:59)
[2016-09-01] MEDS: NEOSPORIN OINTMENT TUBE TOP SCH (09:03)
--- NOTE | 2016-09-01 10:47 | DISCHARGE SUMMARY ---
ADMISSION DATE: 08/20/2016 DISCHARGE DATE: HISTORY OF PRESENT ILLNESS: This is an 81-year-old male who went to the emergency room by his , complaining of worsening shortness of breath, headache, and back pain. Patient's stated that he has been falling more often when walking with his walker and he has complained of shortness of breath. There is increased swelling of lower extremities. The patient was recently discharged from hospital about 2 weeks before that, altered mental status possibly secondary to medication, Klonopin withdrawal. Upon arrival to the emergency room, noted to have shortness of breath, audible wheezing. His reports that it had been the past one and half weeks, increasing shortness of breath. He has had increased weakness, multiple falls. He is not sleeping well. Patient does have a history of chronic headaches and continues to have headaches but it seems to be getting worse. Headache seem to be worse for the last couple of days. He had increased his nebulized treatments. His weight gain is 7 pounds in the past few days. On arrival, he was alert and oriented to surroundings, and able answer questions. He was given 12.5 of Phenergan IV and some Compazine IV for treatment of headache. This caused the patient to be quite drowsy and restless. PAST MEDICAL HISTORY: To review: 1. Congestive heart failure with last echocardiogram performed January 2015 that showed normal left ventricular systolic function. Estimated ejection fraction of 60-65%. There was moderately enlarged right ventricle, global hypokinesis of the right ventricle, moderate pulmonary hypertension, moderate tricuspid regurgitation, mild mitral regurgitation. There was a mild degree of aortic regurgitation, calcification of aortic valve, trivial aortic stenosis. 2. Ischemic cardiomyopathy. 3. Coronary artery disease, status post CABG. 4. Hypertension. 5. Hyperlipidemia. 6. Chronic atrial fibrillation, status post Maze procedure. 7. Status post AICD pacemaker placement. 8. Chronic kidney disease. 9. Bipolar disease. 10. Hypothyroidism. 11. 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 12. COPD, currently on home O2 nasal cannula at 3 L. 13. History of skin cancer. PAST SURGICAL HISTORY: 1. Previous CABG, bypass x2 along with Maze procedure. The patient had implantation of AICD pacemaker. 2. Eight skin cancers removed. 3. Hemorrhoid surgery. 4. Cataract surgery. HOSPITAL COURSE: 1. Admitted with congestive heart failure exacerbation. Placed on some O2. Placed patient on Coreg 6.25 mg by mouth and Aldactone. I diuresed him. 2. Blood pressure remained stable. We are watching afterload and preload. 3. Atrial fibrillation. He is status post Maze procedure. Rate was controlled. 4. History of coronary artery disease. Did not have any chest pain but has known underlying coronary artery disease. 5. COPD which is chronic with some fibrosis. 6. Chronic kidney disease. Aware. Note that he had an echocardiogram with Doppler on 08/20/2016. Right atrium was mildly enlarged at 4.9. Linear artifact consistent with device leads. He had left ventricle that was normal size. End-diastolic dimension of 4.9 and had mild left ventricular hypertrophy. Posterior and inferior ventricular septal wall thickness 1.2 and 1.3 respectively. Normal LV ejection fraction. Estimated ejection fraction of 55%. Normal wall motion. Aortic valve, there is a peak gradient of 17. Mild aortic insufficiency so no aortic stenosis. No pericardial effusion. Clinically, the breathing improved. Compensation improved. He did have sundowning and some delirium in the evening. We made some adjustments with his medication. Went up on his Zyprexa. The hope was to try and get him to rehab but because he had a history of bipolar, this triggered a more extensive evaluation and approval by state. Apparently approval was made so we will try and get him to rehab today. DISCHARGE MEDICATIONS: Tylenol 650 q.6 hours p.r.n., DuoNebs as needed q.4 hours p.r.n., Cordarone 200 mg a day, aspirin 81 mg a day, Lipitor 5 mg a day, Coreg 6.25 mg daily, Klonopin 1 mg p.o. at bedtime and 0.5 mg q.a.m., Colace 100 mg at bedtime, Proscar 5 mg a day, fluticasone, vilanterol, Breo Ellipta is 1 puff daily, Lasix 40 mg a day, iron, B12, vitamin C, folic acid, Icar Plus 1 daily, Lamictal 100 mg b.i.d., Synthroid 100 mcg daily, Neosporin ointment can be used as needed, Zyprexa 15 mg p.o. at bedtime, Zofran will stop, OxyIR 10 mg q.8 hours p.r.n., Protonix 40 mg a day, MiraLAX 17 g p.o. daily, Aldactone 12.5 mg daily, and Flomax 0.4 mg b.i.d. cc: Walter Contreras MD
== END 2016-09-01 14:31 ==
LOC: ED 23:49 → SUATTDRO 08-20 04:43 → 4N 08-20 04:43
PROVIDERS: ADMIT Emergency Medicine; ATTEND Emergency Medicine

== ENCOUNTER 2016-09-23 10:02 | Inpatient (IN) ==
[2016-09-23] MEDS ORDERED: ASPIRIN PO STA (10:22)
[2016-09-23] MEDS ORDERED: DUONEB (A & A) INH ONE (11:09)
[2016-09-23] MEDS ORDERED: LASIX IV ONE (11:11)
--- NOTE | 2016-09-23 11:45 | Diag Imaging Result Doc PS360 ---
EXAM: CHEST-2 VIEWS HISTORY: sob TECHNIQUE: COMPARISON: 08/20/2016 FINDINGS: Sternal wires are present. The heart remains enlarged. There is a left-sided pacemaker. There are increased interstitial markings throughout both lungs. No pleural effusions. IMPRESSION: Increased interstitial markings believed to be fibrosis. There is also cardiomegaly. No change in the prior exam. Electronically signed by Brian Reed 09/23/2016 11:43 AM
--- NOTE | 2016-09-23 12:00 | PROVIDER DOCUMENTATION ---
This chart was entered by Rossana Aldana Scribe, acting as scribe for Iker Morfin MD. HPI-Respiratory General - General Chief Complaint: Shortness of Breath Stated Complaint: SOB Time Seen by Provider: 09/23/16 10:20 Source: patient Allergies/Adverse Reactions: Patient Allergies Allergy/AdvReac Type Severity Reaction Status Date / Time divalproex sodium AdvReac Severe Renal Verified 08/20/16 00:45 [facility] Home Medications: Home Medication List Medication Instructions Recorded Confirmed Last Taken Type ATORVAstatin [Lipitor] 5 mg PO DAILY 03/20/12 08/20/16 08/19/16 History Lamotrigine [Lamictal Odt] 100 mg PO BID 03/20/12 08/20/16 08/19/16 History Olanzapine [Zyprexa] 10 mg PO QHS 03/20/12 08/20/16 08/19/16 History Polyethylene Glycol 3350 [Miralax] 17 gm PO DAILY 03/20/12 08/20/16 08/19/16 History Amiodarone HCl 200 mg PO DAILY 05/28/14 08/20/16 08/19/16 History Spironolactone 25 mg PO DIRECTED 01/15/15 08/20/16 08/19/16 History Finasteride [Proscar] 5 mg PO DAILY #30 tablet 03/18/15 08/20/16 08/19/16 Rx Tamsulosin [Flomax] 0.4 mg PO BID #30 capsule 03/18/15 08/20/16 08/19/16 Rx Docusate Sodium [Colace] 100 mg PO QHS 07/31/16 08/20/16 08/19/16 History Fluticasone/Vilanterol [Breo 1 each IH DAILY 07/31/16 08/20/16 08/19/16 History Ellipta 100-25 Mcg INH] Ipratropium/Albuterol Sulfate 3 ml IH Q4H PRN 07/31/16 08/20/16 08/19/16 History [Iprat-Albut 0.5-3(2.5) mg/3 ml] Iron,Carbonyl/Vit C/Vit B12/FA 1 each PO DAILY 07/31/16 08/20/16 08/19/16 History [Iron 100 Plus Tablet] Albuterol 2.5MG/Ipratrop 0.5MG 3 ml INH RTQ4H neb 09/01/16 Unknown Rx [Duoneb (A & A)] Carvedilol [Coreg] 6.25 mg PO DAILY tablet 09/01/16 Unknown Rx Clonazepam [Klonopin] 0.5 mg PO QAM tablet 09/01/16 Unknown Rx Clonazepam [Klonopin] 1 mg PO QHS tablet 09/01/16 Unknown Rx Furosemide [Lasix] 40 mg PO DAILY tablet 09/01/16 Unknown Rx Levothyroxine [Synthroid] 100 microgm PO DAILY@0700 tablet 09/01/16 Unknown Rx Neomycin/Bacitracn/Pmyxin Oint 1 gm TOP DAILY tube 09/01/16 Unknown Rx [Neosporin Ointment Tube] - History of Present Illness-Resp Nature of Presenting Problem: 81 y/o M presents to ED cc of SOB. Pt is currently in rehab after being hospitalized for CHF. states she thinks that is whats wrong with pt today is his CHF acting up. Pt does have increasing in swelling per . Pt is SOB. SOB an swelling has gotten worse over the past couple days. C/o of wheezing also. Pt is alert and oriented. is at bed side. Quality of Pain: reports: none Severity in ED: reports: mild Onset/Duration: reports: gradual ( x couple days) Timing: reports: still present Context: reports: other (CHF) Exposure: reports: unknown cause Cough Quality/Degree: reports: no cough Episode Frequency: frequent episodes (CHF) Current Respiratory Medication Therapy: Initiated see nurses note Associated Symptoms: reports: shortness of breath, wheezing, other (edema). denies: cough, fever/chills, nasal congestion, nasal drainage, short of breath, sore throat Similar Symptoms Previously?: Yes Recently seen or treated by another doctor?: Yes Review of Systems - Adult - REVIEW OF SYSTEMS - ADULT Constitutional: denies: chills, fever Eyes: denies: dry eyes, blurred vision, double vision, eye pain Ears, Nose, Mouth & Throat: denies: ear pain, nose pain, loose teeth, throat pain Cardiovascular: denies: chest pain, palpitations Respiratory: reports: shortness of breath, wheezing. denies: cough, pleurisy Gastrointestinal: denies: abdominal pain, diarrhea, nausea, vomiting Genitourinary: denies: discharge, frequency, hematuria, hesitency Musculoskeletal: denies: bone pain, back pain, joint pain, joint swelling Neurological: denies: dizziness/vertigo, headache/migraines Past History - Adult - PAST MEDICAL HISTORY-ADULT Review of Records: reports: Old Records Reviewed, Nursing Assessment Review Cardiovascular: reports: CAD, CHF, HTN Respiratory: reports: COPD Genitourinary: reports: kidney disease Neurological: reports: CVA, TIA Psychiatric: reports: bipolar - PRIOR SURGERIES/PROCEDURES Surgical/Procedure History: reports: CABG, pacemaker (defib), other (ICD, hemorrhoid) - PRIOR HOSPITALIZATIONS Prior Hospitalizations: reports: for similar symptoms - IMMUNIZATION STATUS Childhood Immunizations: See Nurse Assessment Flu Vaccine: See Nurse Assessment - FAMILY HISTORY Family History: reviewed, not pertinent - SOCIAL HISTORY Smoking: quit greater than 1 year Substance Use: denies Living Situation: care facility (rehab) Physical Exam-General - PHYSICAL EXAM-ADULT Initial Vital Signs Reviewed: Yes - CONSTITUTIONAL General Appearance: appears well, alert, mild distress - EYES Eyes: other (R eye discharge ( reports this being chronic due to CA being removed and had suregrey x 2 on eye lid)) - HEAD, EARS, NOSE, MOUTH & THROAT HENMT: moist mucous membranes, normal ENT inspection - NECK Neck: full range of motion - RESPIRATORY Respiratory: lungs clear, crackles, rales, wheezing. negative: accessory muscle use, rhonchi - CARDIOVASCULAR Cardiovascular: normal peripheral pulses, regular rate, rhythm, no edema - GASTROINTESTINAL (ABDOMEN) Abdominal Exam: normal bowel sounds, non tender, soft - LYMPHATIC Lymphatic: no adenopathy - MUSCULOSKELETAL Back Exam: normal inspection, no CVA tenderness, no vertebral tenderness Extremity: normal range of motion, non-tender, pedal edema, swelling - SKIN Integumentary: normal color, normal turgor, warm/dry - NEUROLOGIC Neurologic: grossly normal, no motor/sensory deficits - PSYCHIATRIC Psych/Mental Status: oriented x 3 Progress - PLAN OF CARE/RESULTS Progress/Plan/Lab Results: Vital Signs - 8 hr 09/23/16 10:07 09/23/16 12:54 Pulse Rate 89 67 Respiratory Rate 20 20 Blood Pressure 121/66 O2 Sat by Pulse Oximetry 91 L 99 Laboratory Results - last 24 hr 09/23/16 09/23/1617 12:01 12:01 12:01 WBC 12.81 H RBC 3.83 L Hgb 10.8 L Hct 34.7 L MCV 90.6 MCH 28.2 MCHC 31.1 L RDW Std Deviation 17.2 H Plt Count 160 MPV 9.4 Immature Gran % (Auto) 0.2 Neut % (Auto) 90.5 H Lymph % (Auto) 3.0 L Nash % (Auto) 6.0 Eos % (Auto) 0.2 Baso % (Auto) 0.1 Immature Gran # (Auto) 0.02 Neut # (Auto) 11.60 H Lymph # (Auto) 0.38 L Nash # (Auto) 0.77 H Eos # (Auto) 0.03 Baso # (Auto) 0.01 D-Dimer 0.30 Sodium 129 L Potassium 4.4 Chloride 91 L Carbon Dioxide 28 Anion Gap 10 BUN 33 H Creatinine 1.5 H Estimated GFR/1.73 m2 45 BUN/Creatinine Ratio 22 Glucose 100 Calculated Osmolality 266 Calcium 8.6 L Magnesium 2.1 Total Bilirubin 0.68 AST 16 ALT 12 Alkaline Phosphatase 178 H Creatine Kinase 72 Troponin T Ugv-[id number]-Zwhrrlmadvp Pept Total Protein 7.2 Albumin 3.7 Globulin 3.5 Albumin/Globulin Ratio 1.1 Urine Source Urine Color Urine Turbidity Urine pH Ur Specific Clune Urine Protein Ur Glucose (Stick) Ur Ketones (Stick) Urine Blood Urine Nitrite Urine Bilirubin Urobilinogen Dipstick Urine Leukocytes Urine WBC (Auto) Urine RBC (Auto) U Epithel Cells (Auto) Urine Bacteria (Auto) 09/23/16 09/23/16 09/23/16 12:01 12:01 12:01 WBC RBC Hgb Hct MCV MCH MCHC RDW Std Deviation Plt Count MPV Immature Gran % (Auto) Neut % (Auto) Lymph % (Auto) Nash % (Auto) Eos % (Auto) Baso % (Auto) Immature Gran # (Auto) Neut # (Auto) Lymph # (Auto) Nash # (Auto) Eos # (Auto) Baso # (Auto) D-Dimer Sodium Potassium Chloride Carbon Dioxide Anion Gap BUN Creatinine Estimated GFR/1.73 m2 BUN/Creatinine Ratio Glucose Calculated Osmolality Calcium Magnesium Total Bilirubin AST ALT Alkaline Phosphatase Creatine Kinase Troponin T 0.023 Wzi-R-Comwiuekuzd Pept 73462 H Total Protein Albumin Globulin Albumin/Globulin Ratio Urine Source CLEAN CATCH Urine Color YELLOW Urine Turbidity CLEAR Urine pH 5.5 Ur Specific Clune 1.015 Urine Protein TRACE A Ur Glucose (Stick) NEGATIVE Ur Ketones (Stick) NEGATIVE Urine Blood NEGATIVE Urine Nitrite NEGATIVE Urine Bilirubin NEGATIVE Urobilinogen Dipstick NORMAL Urine Leukocytes MODERATE A Urine WBC (Auto) TNTC A Urine RBC (Auto) <10 U Epithel Cells (Auto) <10 Urine Bacteria (Auto) 2+ Orders Category Date Time Status Cardiac Monitoring DIRECTED Care 09/23/16 10:22 Inactive Cardiac Monitoring DIRECTED Care 09/23/16 11:00 Active Misc. NRSG Communication Order DIRECTED Care 09/23/16 11:13 Active Oxygen Therapy- ED Nursing DIRECTED Care 09/23/16 10:22 Inactive Oxygen Therapy- ED Nursing DIRECTED Care 09/23/16 11:00 Active Saline Loc NOW Care 09/23/16 10:22 Inactive Saline Loc NOW Care 09/23/16 11:00 Active Heart Healthy Diet Diet 09/23/16 Lunch Active CHEST-2 VIEWS [RAD] Stat Exams 09/23/16 11:00 Completed CBC WITH ELECTRONIC DIFF [HEME] Stat Lab 09/23/16 12:01 Completed CK PROFILE [SP CHEM] Stat Lab 09/23/16 12:01 Completed COMPREHENSIVE METABOLIC PANEL [CHEM] Stat Lab 09/23/16 12:01 Completed D-DIMER [CHEM] Stat Lab 09/23/16 12:01 Completed MAGNESIUM [CHEM] Stat Lab 09/23/16 12:01 Completed PRO B-NATRIURETIC PEPTIDE Stat Lab 09/23/16 12:01 Completed TROPONIN T Stat Lab 09/23/16 12:01 Completed UA NIMS W/REFLEX CULT [URINALYSIS] Stat Lab 09/23/16 12:01 Completed URINE CULTURE [RM] Routine Lab 09/23/16 13:19 Received Albuterol 2.5MG/Ipratrop 0.5MG [Duoneb (A & A)] Med 09/23/16 11:09 Discontinued 3 ml INH NOW ONE Aspirin Med 09/23/16 10:22 Discontinued 325 mg PO STAT STA CefTRIAXONE [Rocephin] Med 09/23/16 12:41 Discontinued 1 gm IM NOW ONE Furosemide [Lasix] Med 09/23/16 11:11 Discontinued 60 mg IV NOW ONE Furosemide [Lasix] Med 09/23/16 12:40 Discontinued 80 mg PO NOW ONE Lidocaine 1% Pf [Xylocaine-Mpf 1%] Med 09/23/16 12:41 Discontinued 5 ml INJ NOW ONE Metolazone [Zaroxolyn] Med 09/23/16 12:41 Discontinued 10 mg PO NOW ONE Aerosol Treatments Routine Oth 09/23/16 11:10 Active Aerosol Treatments Stat Oth 09/23/16 11:10 Active EKG [EKG] Stat Ther 09/23/16 11:00 Draft PLAN: LABS , BREATHING TREATMENT, MONITOR PT Result Diagrams: 09/23/16 12:01 09/23/16 12:01 - XRAY 1 XRAY: Bilateral XRAY Study: Chest Impression: Abnormal (increased interstitial markings believed to be fibrosis. There is also cardimegaly. No change in the prior exam. - Dr. Reed(radiologist) ) - CONSULTS/PCP/HOSPITALIST Notification #1 *Consult/PCP/Hospitalist*: (pcp) Time Discussed: 13:23 Consult Disposition: Admit (he will take over pt care) Departure - Departure Date of Disposition Decision: 09/23/16 Time of Disposition Decision: 13:26 DIAGNOSIS: Hyponatremia syndrome, Pulmonary fibrosis, UTI (urinary tract infection) with pyuria COPD (chronic obstructive pulmonary disease) Qualifiers: COPD type: unspecified COPD Qualified Code(s): J44.9 - Chronic obstructive pulmonary disease, unspecified Disposition: ADMITTED INPATIENT 09 Certified Medical Emergency: Emergent Condition: Fair Referrals and Follow-Ups: Walter Contreras MD [Primary Care Provider] - - Critical Care Note This patient required my direct & personal management of CC.: No This chart was documented by the indicated scribe, (Rossana Aldana Scribe) and accurately reflects the services I performed and decisions made by me, Iker Morfin MD, as attested by the provider's signature.
[2016-09-23 12:15] LABS: URINE MICRO REVIEW NEEDED? NO; URINE SOURCE CLEAN CATCH
[2016-09-23 12:20] LABS: BILIRUBIN URINE NEGATIVE (NEGATIVE); BLOOD URINE NEGATIVE (NEGATIVE); COLOR YELLOW; GLUCOSE URINE NEGATIVE (NEGATIVE); LEUKOCYTES URINE MODERATE (NEGATIVE); NITRITE URINE NEGATIVE (NEGATIVE); PH URINE 5.5; PROTEIN URINE TRACE mg/dL (NEGATIVE); SP GRAVITY URINE 1.015; TURBIDITY URINE CLEAR (CLEAR); UR EPITHELIAL CELLS <10 /HPF (<10); URINE BACTERIA 2+ /HPF; URINE CULTURE NEEDED? YES; URINE RBC <10 /HPF (<10); URINE WBC TNTC /HPF (<10); UROBILINOGEN URINE NORMAL (NORMAL)
[2016-09-23 12:29] LABS: BASO% 0.1 % (0.0-0.8); EOS# 0.03 X1000 (0.0-0.7); EOS% 0.2 % (0.0-10.0); HEMATOCRIT 34.7 % (42.0-52.0); HEMOGLOBIN 10.8 g/dL (14.0-18.0); IMM GRAN# 0.02 X1000 (0.0-0.04); IMM GRAN% 0.2 % (0.0-0.5); LYMPH# 0.38 X1000 (1.2-3.4); MANUAL DIFF NEEDED? NO; MCH 28.2 PG (27-31); MCHC 31.1 g/dL (33-37); MCV 90.6 FL (81-99); MONO# 0.77 X1000 (0.11-0.59); MPV 9.4 FL (7.4-10.4); NEUT% 90.5 % (42.2-75.2); PLT 160 X1000 (130-400); RBC 3.83 XMIL (4.7-6.1)
[2016-09-23] MEDS ORDERED: LASIX PO ONE (12:40)
[2016-09-23] MEDS ORDERED: ROCEPHIN IM ONE (12:41)
[2016-09-23] MEDS ORDERED: ZAROXOLYN PO ONE (12:41)
[2016-09-23] MEDS ORDERED: XYLOCAINE-MPF 1% INJ ONE (12:41)
[2016-09-23 12:46] LABS: ALBUMIN 3.7 g/dL (3.5-5.0); CALCIUM 8.6 mg/dL (8.8-10.2); MAGNESIUM 2.1 mg/dL (1.5-2.7); POTASSIUM 4.4 mmol/L (3.5-5.1); TOTAL BILIRUBIN 0.68 mg/dL (0.20-1.00); TOTAL PROTEIN 7.2 g/dL (6.3-8.3)
--- NOTE | 2016-09-23 13:07 | EKG Report ---
Test Performed on : 09/23/2016 10:19:20 AM Test Reason : Chest Pain Blood Pressure : / mmHG Vent. Rate : 075 BPM Atrial Rate : 093 BPM P-R Int : 000 ms QRS Dur : 164 ms QT Int : 456 ms P-R-T Axes : 000 111 -51 degrees QTc Int : 509 ms Atrial fibrillation. with premature ventricular or aberrantly conducted complexes. Right bundle branch block T wave abnormality, consider inferior ischemia Abnormal ECG When compared with ECG of 23-SEP-2016 10:18, (Unconfirmed) Previous ECG has undetermined rhythm, needs review Nonspecific T wave abnormality, improved in Lateral leads Unconfirmed Result
--- NOTE | 2016-09-23 14:53 | HISTORY AND PHYSICAL ---
HISTORY OF PRESENT ILLNESS: This is an 81-year-old, he was sent over from [facility]. He was discharged from this hospital on 09/01/2016. Presented here, sent for shortness of breath and really not able to accomplish any physical therapy. There he is eating fairly well, but they noticed swelling in his lower extremities and increased work of breathing, found a urinalysis consistent with a urinary tract infection. PAST MEDICAL HISTORY: 1. Congestive heart failure. Last echocardiogram done in January 2015 which shows normal left ventricular systolic function, ejection fraction 60%-65%, moderate enlarged right ventricle, global hypokinesis of the right ventricle, moderate pulmonary hypertension, moderate tricuspid regurgitation, mild mitral regurgitation. There is a mild degree of aortic regurgitation as well. 2. Ischemic cardiomyopathy, coronary artery disease. 3. Coronary artery disease status post CABG. 4. Hypertension. 5. Hyperlipidemia. 6. Chronic atrial fibrillation status post Maze procedure. 7. Status post AICD pacemaker placement. 8. Bipolar disease. 9. Hypothyroidism. 10. 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 11. COPD, currently on home oxygen nasal cannula at 3 L. 12. History of skin cancers which have been resected. 13. He does have some interstitial fibrosis as well. SURGICAL HISTORY: 1. Previous coronary bypass procedure, I think he has had 2 of these along, with a Maze procedure. Patient has had implantation of AICD, pacemaker. 2. Eight skin cancers removed. 3. Hemorrhoid surgery. 4. Cataract surgery. SOCIAL HISTORY: Patient is at [facility]. He was at home, and his is at the bedside at the present time. He has quit smoking years ago. No known history of alcohol use. FAMILY HISTORY: Patient's father and mother both had history of lung cancer. Mother also with history of heart disease. ALLERGIES: Patient reports allergies to Depakote. HOME MEDICATIONS: Reviewed. REVIEW OF SYSTEMS: General: Not been able to do much rehab. Has increased work of breathing the last couple days, increased swelling in his lower extremities. His mental status, cognitive status seems to be about the same. PHYSICAL EXAMINATION: VITAL SIGNS: Pulse 67, respirations 20, blood pressure 121/66, O2 saturation 99%. HEENT: Pupils are equal and round. LUNGS: Clear in all lung carr. CARDIOVASCULAR: Regular rate without murmur or S3. LUNG CARR: There are rales at the lung bases. ABDOMEN: Soft. EXTREMITIES: With 2+ pitting edema from ankle to mid bynum. Weight 161 pounds, height 5 feet 7 inches. SKIN: Warm and dry. DIAGNOSTIC DATA: White count 12,810, hematocrit 34, platelet count 160,000. Sodium 129, potassium 4.4, chloride 91, bicarb 28, BUN 33, creatinine 1.5. Blood sugar 100. Calcium 8.6. ProBNP 14,199. Albumin 3.5. D-dimer 0.3. Urinalysis: Rzo-qgopwyao-eg-count white blood cells. Chest x-ray: Interstitial markings believed to be underlying fibrosis. ASSESSMENT AND PLAN: 1. Increased pedal edema. Some pulmonary venous hypertension suspected on top of pulmonary fibrosis. We will need to diurese him some. 2. Urinary tract infection. Czm-qovzfqnn-ym-count white blood cells. I suspect this is probably from prostate enlargement, possible prostatitis as well. We will put him on Levaquin 750 mg IV daily. 3. Underlying dementia. Distant history of bipolar disease which has been well controlled. He does have times of confusion and delirium which is improved. He is on Zyprexa and Klonopin. 4. History of coronary artery disease status post coronary artery bypass graft. History of ischemic cardiomyopathy. Aware. With some fluid retention. He has right ventricular dysfunction as well, and diastolic dysfunction with the left ventricle. He has moderate to severe pulmonary hypertension, moderate to severe tricuspid regurgitation, mild mitral regurgitation, and mild aortic regurgitation. He has a calcific aortic valve with trivial aortic stenosis. cc: Walter Contreras MD
[2016-09-23] MEDS ORDERED: SALINE LOCK IV FLUID XX ONE (15:34)
[2016-09-23] MEDS ORDERED: DUONEB (A & A) INH SCH (15:34)
[2016-09-23] MEDS ORDERED: DUONEB (A & A) INH PRN (15:34)
[2016-09-23] MEDS: TYLENOL PO PRN (18:31)
[2016-09-23] MEDS: FLOMAX PO SCH (21:08)
[2016-09-23] MEDS: COLACE PO SCH (21:09)
[2016-09-23] MEDS: ZYPREXA PO SCH (21:09)
[2016-09-23] MEDS: KLONOPIN PO SCH (21:10)
[2016-09-23] MEDS: LAMICTAL PO SCH (21:10)
[2016-09-23] MEDS: LASIX PO SCH (21:10)
[2016-09-24] MEDS: SYNTHROID PO SCH (06:14)
--- NOTE | 2016-09-24 06:57 | EKG Report ---
Test Performed on : 09/24/2016 06:27:14 AM Test Reason : Heart Failure Admission Blood Pressure : / mmHG Vent. Rate : 076 BPM Atrial Rate : 068 BPM P-R Int : 000 ms QRS Dur : 164 ms QT Int : 478 ms P-R-T Axes : 000 117 -64 degrees QTc Int : 537 ms Atrial fibrillation. with premature ventricular or aberrantly conducted complexes. Right bundle branch block T wave abnormality, consider inferior ischemia Abnormal ECG When compared with ECG of 23-SEP-2016 10:19, (Unconfirmed) Nonspecific T wave abnormality, worse in Lateral leads Confirmed by Tulio ROB, Luther Meadows ([id number]) on 09/25/2016 9:13:41 AM
[2016-09-24 07:03] LABS: MANUAL DIFF NEEDED? NO
[2016-09-24 07:16] LABS: BASO% 0.3 % (0.0-0.8); EOS# 0.24 X1000 (0.0-0.7); EOS% 3.2 % (0.0-10.0); HEMOGLOBIN 10.3 g/dL (14.0-18.0); LYMPH# 0.59 X1000 (1.2-3.4); MCH 28.5 PG (27-31); MCHC 31.2 g/dL (33-37); MCV 91.2 FL (81-99); MONO# 0.66 X1000 (0.11-0.59); MONO% 8.9 % (1.7-9.3); MPV 9.5 FL (7.4-10.4); NEUT% 79.6 % (42.2-75.2); PLT 152 X1000 (130-400); RBC 3.62 XMIL (4.7-6.1)
[2016-09-24] MEDS ORDERED: BREO ELLIPTA 100/25 MCG INH INH SCH (07:30)
[2016-09-24 07:33] LABS: CALCIUM 8.9 mg/dL (8.8-10.2); MAGNESIUM 1.9 mg/dL (1.5-2.7); POTASSIUM 3.8 mmol/L (3.5-5.1)
--- NOTE | 2016-09-24 08:55 | PROGRESS NOTE ---
DATE: 09/24/2016 SUBJECTIVE: Mr. Brown is eating breakfast. He is breathing comfortably. He feels good. Apparently had a pretty good night. He has had some on the monitor runs of ventricular tachycardia, 7 to a 15 beat runs. He has remained afebrile. Awake and alert. He knows who he is. He knows he is in the hospital. OBJECTIVE: Vital signs: Temperature 97.3 degrees, pulse 114, respirations 17, blood pressure 115/77. Eyes: Pupils are equal and round. Lungs: Clear in all lung pham. Cardiovascular exam: Regular rhythm and rate without murmur or S3. : Urine output 2500 mL. LABS: White count 7390, hematocrit 33, platelet count 152,000. Sodium 140, potassium 3.8, chloride 93, BUN 36, creatinine 1.7. ProBNP was 11,825. X-RAYS: EKG this morning: Atrial fibrillation with ventricular rate controlled. Right bundle branch block. No new changes in ST segments. His troponin has been 0.026. ASSESSMENT AND PLAN: 1. Urinary tract infection. Continue his Levaquin. 2. Congestive heart failure. The last echocardiogram was done January 2015 that showed a normal ejection fraction of 60% to 65%. Moderate to large right ventricle. Global hypokinesis of the right ventricle. Does have underlying coronary artery disease. No sign of active coronary ischemia. We did increase his Lasix to 80 mg oral twice a day. 3. Dementia. History of bipolar, which has been well controlled. Dementia is doing well on the present dose of Zyprexa and Klonopin. 4. History of hypothyroidism. 5. Previous cerebrovascular accident with right-sided weakness and facial droop. 6. Chronic obstructive pulmonary disease. 7. Nutrition appears to be doing well. Oral intake good. Continue physical therapy. I think the plan is to try and take him home, and get home health to assist. cc: Walter Contreras MD
[2016-09-24] MEDS: MIRALAX PO SCH (09:57)
[2016-09-24] MEDS: ICAR-C PLUS PO SCH (09:57)
[2016-09-24] MEDS: LIPITOR PO SCH (09:57)
[2016-09-24] MEDS: COREG PO SCH (09:57)
[2016-09-24] MEDS: FLOMAX PO SCH ×2 (09:58→21:35)
[2016-09-24] MEDS: CORDARONE PO SCH (09:58)
[2016-09-24] MEDS: NEOSPORIN OINTMENT TUBE TOP SCH (09:58)
[2016-09-24] MEDS: LAMICTAL PO SCH ×2 (09:59→21:35)
[2016-09-24] MEDS: PROSCAR PO SCH (09:59)
[2016-09-24] MEDS: KLONOPIN PO SCH ×2 (09:59→21:35)
[2016-09-24] MEDS: LASIX PO SCH ×2 (10:01→21:34)
[2016-09-24] MEDS ORDERED: ROCEPHIN IM SCH (14:30)
[2016-09-24] MEDS ORDERED: XYLOCAINE-MPF 1% INJ SCH (14:30)
[2016-09-24] MEDS: TYLENOL PO PRN ×2 (15:19→21:33)
[2016-09-24] MEDS: COLACE PO SCH (21:35)
[2016-09-24] MEDS: ZYPREXA PO SCH (21:35)
[2016-09-25] MEDS: SYNTHROID PO SCH (06:25)
[2016-09-25 06:55] LABS: MAGNESIUM 1.9 mg/dL (1.5-2.7); POTASSIUM 3.4 mmol/L (3.5-5.1)
--- NOTE | 2016-09-25 07:17 | Diag Imaging Result Doc PS360 ---
EXAM: CHEST-PORTABLE HISTORY: pulmonary venous htn TECHNIQUE: AP portable at 0500 COMMENT: There is diffuse reticulonodular interstitial opacity throughout both lungs which is slightly worse than on 03/14/2015 but not significantly changed since 09/23/2016. IMPRESSION: Pulmonary fibrosis. Electronically signed by Moses Martinez 09/25/2016 7:15 AM
[2016-09-25 07:37] VITALS: BP 120/66
[2016-09-25] MEDS ORDERED: ALDACTONE PO SCH (09:00)
[2016-09-25] MEDS: LIPITOR PO SCH (09:20)
[2016-09-25] MEDS: CORDARONE PO SCH (09:20)
[2016-09-25] MEDS: COREG PO SCH (09:20)
[2016-09-25] MEDS: KLONOPIN PO SCH (09:20)
[2016-09-25] MEDS: FLOMAX PO SCH (09:20)
[2016-09-25] MEDS: ICAR-C PLUS PO SCH (09:20)
[2016-09-25] MEDS: PROSCAR PO SCH (09:20)
[2016-09-25] MEDS: LAMICTAL PO SCH (09:20)
[2016-09-25] MEDS: MIRALAX PO SCH (09:22)
[2016-09-25] MEDS: LASIX PO SCH (09:22)
[2016-09-25] MEDS: NEOSPORIN OINTMENT TUBE TOP SCH (09:22)
[2016-09-25] MEDS ORDERED: OMNICEF PO ONE (09:42)
[2016-09-25] MEDS: TYLENOL PO PRN (11:59)
[2016-09-25] MEDS ORDERED: OMNICEF PO SCH (21:00)
--- NOTE | 2016-09-26 04:34 | DISCHARGE SUMMARY ---
ADMISSION DATE: 09/23/2016 DISCHARGE DATE: 09/25/2016 DISCHARGE DIAGNOSES: 1. Urinary tract infection with gram-positive cocci. 2. Acute fluid overload. 3. Overall weakness. 4. Hypertension. HOSPITAL COURSE: Mr. Brown is an 81-year-old white male with a history of congestive failure, ischemic cardiomyopathy, hypertension, and chronic atrial fibrillation. He had been discharged to [facility] but returned to the hospital because he had overall weakness and was unable to perform work associated with physical therapy and rehab. He was also found to have increased work of breathing and urinalysis consistent with urinary tract infection. He was brought into the hospital and was diuresed with increasing doses of Lasix. His urine culture grew gram-positive cocci which did not have ID or sensitivities upon discharge, but he seemed to be responding well to the Rocephin that had been started by the admitting physician. The patient's antibiotic was changed to oral cefdinir. I spoke at length with his about discharge plans. She was very eager to have him home with home health services to be started next week. She was expecting him discharged on Wednesday, the . Unfortunately Dr. Contreras had to be away for family matters. The patient's stated that she would be very happy to take him home that day. Arrangements were made for any new or changed prescriptions to be sent in for the patient to resume over the weekend. He was also given cefdinir prescription for his UTI. Hopefully arrangements can be made for home health at the beginning of the week and he can get started on his home PT. An order for [facility] eval was placed prior to discharge. cc: MD Walter Resendiz MD MTDD
== END 2016-09-25 13:17 | disposition home health service (06) ==
LOC: ED 10:02 → EDIPHOLD 13:56 → 3N 14:42
PROVIDERS: ADMIT Emergency Medicine; ATTEND Emergency Medicine